=== PATIENT | male | born 1945 | race Caucasian/White ===

== ENCOUNTER 2018-08-16 09:59 | Inpatient (IN) ==
--- NOTE | 2018-08-16 07:29 | Anesthesia Evaluation PreOp ---
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 HX Other Medical History: Hepatic (cirrhosis, recovering alcoholic), Renal (CKD 3) Anesthesia History: No Prior Anesthetic Complications, Past Anesthesia (BPG 1968 , phlebectomy) Alcohol Use: rarely Drug use: none Medications and Allergies Aspirin 81 mg PO DAILY 04/02/16 [History] Ciprofloxacin HCl [Cipro] 500 mg PO BID #14 tab 04/02/16 [Rx] Ferrous Sulfate [Iron Supplement] 325 mg PO DAILY 04/02/16 [History] Folic Acid 1 mg PO DAILY 04/02/16 [History] Furosemide [Lasix] 40 mg PO BID 04/02/16 [History] Lisinopril [Zestril] 5 mg PO DAILY 04/02/16 [History] Metoprolol [Lopressor] 25 mg PO DAILY 04/02/16 [History] Spironolactone [Aldactone] 25 mg PO BID 04/02/16 [History] predniSONE [PredniSONE] 40 mg PO DAILY #10 tablet 06/07/16 [Rx] Pramoxine HCl [Dermarest Eczema] 56.7 gm TP QID PRN #120 lotion 08/11/16 [Rx] Famotidine [Pepcid] 40 mg PO DAILY #30 tablet 10/26/16 [Rx] Ondansetron HCl [Zofran] 4 mg PO Q6H #20 tablet 10/26/16 [Rx] Furosemide [Lasix] 40 mg PO BID #10 tablet 12/23/16 [Rx] OxyCODONE Immed Rel [Roxicodone 5 MG] 5 mg PO Q6HR PRN #10 tablet 08/29/17 [Rx] 3 Allergy/AdvReac Type Severity Reaction Status Date / Time No Known Allergies Allergy Verified 12/23/16 10:15 - Meds/Allergy Pre-op Review Medications Reviewed: Yes Allergies Reviewed: Yes Anesthesia Results - Imaging EKG: report reviewed (ATRIAL FIBRILLATION WITH SLOW VENTRICULAR RESPONSE DIFFUSE ST-T CHANGES ABNORMAL ECG (2017)) Additional studies: stress test: Impression: Perfusion imaging was negative for ischemia or infarct. Pharmacologic stress ECG is non diagnostic for ischemia due to baseline non-specific ST and T abnormalities. Gated EF = 64%. carotid study: The right internal carotid artery has an 80-99% stenosis. The left internal carotid artery has an 80-99% stenosis. echo 2016: Impressions: LVEF 60%. Normal left ventricular size and systolic function. Definity was given. Indeterminate diastolic function. Moderate bi-atrial enlargement. Dilated RV with normal function. Mild mitral regurgitation. Estimated RVSP was 35 mmHg. No pulmonary hypertension. The IVC is not dilated. 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 History: TIA Other Medical History: Hepatic, Renal Anesthesia History: No Prior Anesthetic Complications, Past Anesthesia Alcohol Use: rarely Drug use: none - Meds/Allergy Pre-op Review Medications Reviewed: Yes Allergies Reviewed: Yes Beta Blockers on Current Med List: Yes (this am preop) Anesthesia Results - Labs Laboratory Tests 08/14/18 08/14/18 08/14/18 15:51 15:51 15:51 Hgb 9.3 L Hct 27.3 L PT 11.7 INR 1.0 APTT 37.3 H Sodium 138 Potassium 3.9 Chloride 103 Carbon Dioxide 29 BUN 30 H Creatinine 1.43 H Anesthesia Exam Weight: 90 kg NPO (# of Hours): over 8 hours - HEENT Pupil (Motor): Pupils equal Mallampati: I Teeth: Edentulous Oral Opening: Greater than 3 - Cardiac Rhythm: Regular Murmur: None - Pulmonary Breath Sounds: bilateral Rhonchi Respiratory Effort: Symmetrical Anesthesia Assess/Plan ASA Score: 3 Modified [place] Scale for Level of Consciousness: Cooperative, oriented, and tranquil Anesthetic Plan: General Monitoring Plan: Standard Monitors, A-Line Recovery Plan: PACU (Discussed GA, risks. Agreed to proceed.)
[~2018-08-16 09:59] MED LIST: Vancomycin 1,000 MG, Sodium Chloride IRRigation 1,000 ML IR ONE
[2018-08-16] MEDS ORDERED: CeFAZolin Syr 2,000MG/20 ML 2,000 MG/20 ML SYRINGE IVPB ONE (10:26)
[2018-08-16] MEDS ORDERED: Albuterol 2.5 MG/3 ML NEBULIZER IH ONE (10:26)
[2018-08-16] MEDS ORDERED: Lidocaine -MPF 1% 5 ML AMPUL ONE (10:30)
[2018-08-16] MEDS ORDERED: Protamine Sulfate 50 MG/5 ML VIAL IVP ONE (10:30)
[2018-08-16] MEDS ORDERED: Heparin 1,000 UNITS/500 mL 1,000 ML ONE (10:30)
[2018-08-16] MEDS ORDERED: 0.9 % Sodium Chloride 1,000 ML IVC SCH ×2 (10:30→16:13)
[2018-08-16] MEDS ORDERED: Bupivacaine-MPF 0.25% 10 ML VIAL ONE ×2 (10:30→14:18)
[2018-08-16] MEDS ORDERED: Vancomycin 1,000 MG VIAL ONE (10:30)
[2018-08-16] MEDS ORDERED: Lidocaine -MPF 1% 2 ML VIAL ID ONE (10:32)
[2018-08-16] MEDS ORDERED: Acetaminophen IV 1,000 MG/100 ML INFUS..BTL IVPB ONE (10:37)
[2018-08-16] MEDS ORDERED: Albuterol 2.5 MG/3 ML NEBULIZER ONE (10:37)
[2018-08-16] MEDS ORDERED: Heparin 1,000 UNITS/500 mL 500 ML ONE (10:38)
[2018-08-16] MEDS ORDERED: *HR* FentaNYL (PF) 100 MCG/2 ML VIAL ONE (10:39)
[2018-08-16] MEDS ORDERED: Lidocaine -MPF 2% 2 ML VIAL ONE ×2 (10:40→11:13)
[2018-08-16] MEDS ORDERED: *HR* Propofol 200 MG/20 ML VIAL IVP ONE (10:40)
[2018-08-16] MEDS ORDERED: *HR* Succinylcholine 200 MG/10 ML VIAL IVP ONE (10:40)
[2018-08-16] MEDS ORDERED: *HR* Phenylephrine 10 MG/ML VIAL ONE (10:41)
--- NOTE | 2018-08-16 10:41 | History & Physical Report ---
Date of Encounter: 08/16/18 Time of Encounter: 10:35 24 Hour HP Update - Instructions Instructions: If the History and Physical is less than 30 days old and was completed prior to A.M. admission and or procedure and has NOT been updated on calendar day of procedure please complete this update prior to performing procedure. - Update Patient reports changes in Medical Condition: No Changes in examination, assessment, or condition: No Changes in Medication: No Preop tests/diagnostics Reviewed: Yes Surgery Remains Indicated: Yes Consent for Planned Operative Procedure(s) Verified: Yes - Pre-Operative Checklist Preoperative Checklist Indicated: Yes Prophylactic Antibiotic Ordered: Yes (vancomycin due to risk of MRSA) Home Medications Include Beta Quinn: Yes Beta Quinn Taken Today (Day of Surgery): Yes Beta Quinn Taken Yesterday (Day Prior to Surgery): Yes Is VTE Prophylaxis Indicated?: Yes
[2018-08-16] MEDS ORDERED: 0.9 % Sodium Chloride 500 ML IVC SCH (10:45)
[2018-08-16] MEDS ORDERED: *HR* Remifentanil 2 MG VIAL IVP ONE (10:46)
[2018-08-16] MEDS ORDERED: *HR* Labetalol 100 MG/20 ML MDV ONE (10:48)
[2018-08-16] MEDS ORDERED: NiCARdipine 2.5 MG/10 ML Syringe IVPB ONE (10:48)
[2018-08-16] MEDS ORDERED: EPHEDrine 50 MG/ML VIAL ONE (10:49)
[2018-08-16] MEDS ORDERED: Lidocaine -MPF 4% 5 ML AMPUL ONE (10:51)
[2018-08-16] MEDS ORDERED: *HR* Heparin 5,000 UNIT/ML VIAL ONE ×2 (11:13→13:31)
[2018-08-16] MEDS ORDERED: Ondansetron 4 MG/2 ML VIAL ONE (13:02)
[2018-08-16] MEDS ORDERED: Dexamethasone 4 MG/ML VIAL ONE (13:02)
[2018-08-16] MEDS ORDERED: *HR* OxyCODONE Immed Rel 5 MG TABLET PO PRN ×2 (13:07→16:13)
[2018-08-16] MEDS ORDERED: *HR* Labetalol 20 MG/4 ML SYRINGE IVP PRN ×2 (13:07→16:13)
[2018-08-16] MEDS ORDERED: Ondansetron 4 MG/2 ML VIAL IVP ONE (13:07)
[2018-08-16] MEDS: *HR* HYDROmorphone (PF) 1 MG/ML SYRINGE IVP PRN ×2 (14:56→15:03)
--- NOTE | 2018-08-16 15:32 | Operative Note ---
Date of procedure: 08/16/18 Pre-op diagnosis: 80-99% right internal carotid artery stenosis Post-op diagnosis: same Procedure: Right carotid endarterectomy with Hemashield patch angioplasty Complications: None Anesthesia: GETA Surgeon: Bran Tyler Was there an general office assistant present: No Estimated blood loss (cc): 50 Specimen: Right carotid plaque Condition: stable Disposition: same day Procedure in Detail: Indications: The patient is a 73-year-old male who was found have an 80-99% left internal carotid artery stenosis. A carotid endarterectomy was recommended to reduce his risk of stroke. Procedure: The patient was identified in the preoperative area. The risks, benefits, and alternatives of the procedure were discussed and all questions were answered. The patient was then taken to the operating room and placed in supine position on the operating table. After the induction of general endotracheal anesthesia, the patient was cleaned and draped in normal sterile fashion. A longitudinal incision was made anterior to the right sternocleidomastoid muscle. Hemostasis was obtained via electrocautery. Through a process of blunt , sharp, and electrocautery dissection, the platysma was incised with electrocautery. The jugular vein was identified. The facial vein was dissected , clamped, divided and ligated with a 2-0 silk suture ligature. The jugular vein was retracted to expose the carotid bifurcation. The patient received 2000 units of heparin intravenously at this time. Proximal dissection of the common and external carotid arteries were performed circumferentially. Dissection of the internal carotid was performed circumferentially. Vessels loops were passed around the internal and external carotid and an umbilical tape was passed from the common carotid artery. The patient received additional 3000 units of heparin intravenously. After waiting adequate time for the heparin to circulate, the vessels were occluded and a longitudinal arteriotomy was made into the common carotid artery and extended into the internal carotid beyond the plaque. The plaque was long, extended distally and was heavily calcified. Vigorous pulsatile retrograde flow was noted from the internal carotid artery upon release of the vessel loop. Rapid pulsatile retrograde flow was consistent with significant retrograde perfusion. Given this finding patient was not required.. A dental [place] was used to perform a standard endarterectomy. Proximal and distal endpoints were inspected an no elevated flaps were noted. Additional heparin was given throughout the procedure to maintain adequate anticoagulation. A Hemashield patch was cut to fit the defect and sutured in place with running 6 -0 Prolene. Prior to completing the closure, each vessel was flushed and then reoccluded. Heparinized saline was infused into the lumen. The patch was completed. Flow was restored in the external carotid artery, followed the common carotid artery, lastly the internal carotid artery was opened. A low resistance arterialized signal was present within the internal carotid artery beyond the patch. Thrombin and Gelfoam were used to aid in hemostasis. Meticulous hemostasis was obtained throughout the wound with electrocautery. Platelet rich and platelet poor plasma were infused into the wounds. The sternocleidomastoid was reapproximated with interrupted 3-0 Vicryl. Platelet rich and platelet poor plasma were infused into the wound. A TLS drain was brought through a separate stab incision and sutured in place with 0 silk suture. The platysma was reapproximated with running 3-0 Vicryl. Local anesthetic was infused in the skin. A 3-0 Monocryl was used to reapproximate the skin. A sterile dressing was applied. The patient was extubated, taken to the recovery room in stable condition.
--- NOTE | 2018-08-16 15:47 | Anesthesia Evaluation Post Op ---
Date of Encounter: 08/16/18 Time of Encounter: 15:46 - Vital Signs Vital Signs: Selected Entries 08/16/18 15:35 Temperature 97.7 F Pulse Rate 46 Respiratory Rate 18 Blood Pressure 96/55 O2 Sat by Pulse Oximetry 99 - Lungs Lungs: Clear Ascult./Percussion - Airway Airway: Non-obstructed - Cardiovascular Regular Rate - Pain Pain Scale: 2 Pain Scale used: Numeric (1 - 10) - Nausea Vomiting Nausea Vomiting: Not Present - Hydration Hydration: Tolerates oral liquids, Has not voided - Discharge PostOp Status: Transfer Patient to floor
[2018-08-16] MEDS ORDERED: *HR* HYDROcodone/Acet 5/325 mg TABLET PO PRN (16:13)
[2018-08-16] MEDS ORDERED: Acetaminophen 325 MG TABLET PO PRN (16:13)
[2018-08-16] MEDS ORDERED: Naloxone 0.4 MG/ML INJ IVP PRN (16:13)
[2018-08-16] MEDS ORDERED: OXYCODONE Oral CONC 10 MG/0.5 ML ORAL.SYG SL PRN ×2 (16:13)
[2018-08-16] MEDS ORDERED: Ondansetron 4 MG/2 ML VIAL IVP PRN (16:13)
[2018-08-16] MEDS ORDERED: *HR* Atropine Sulfate 1 MG/10 ML SYRINGE ONE (16:16)
[2018-08-16] MEDS ORDERED: D5% in Water 1,000 ML IVC PRN (16:17)
[2018-08-16] MEDS ORDERED: *HR* Dextrose 50 % in Water (Syg) 50 ML SYRINGE IVP PRN (16:17)
[2018-08-16] MEDS ORDERED: Dextrose Gel 15 GM/37.5 ML TUBE PO PRN ×2 (16:17)
[2018-08-16] MEDS: *HR* Metoprolol 5 MG/5 ML VIAL IVP SCH ×2 (20:04→20:06)
[2018-08-16] MEDS: Insulin LISPRO 300 UNITS/3 ML VIAL SQ SCH (20:05)
[2018-08-16] MEDS: Furosemide 20 MG TABLET PO SCH (20:25)
[2018-08-16] MEDS: Spironolactone 25 MG TABLET PO SCH (20:25)
[2018-08-16] MEDS ORDERED: Insulin LISPRO 300 UNITS/3 ML VIAL SQ SCH (21:00)
[2018-08-17] MEDS: *HR* Metoprolol 5 MG/5 ML VIAL IVP SCH ×2 (00:40→05:57)
[2018-08-17] MEDS ORDERED: *HR* Heparin 5,000 UNIT/ML VIAL SQ SCH ×2 (06:00)
--- NOTE | 2018-08-17 06:51 | Discharge Summary ---
Orders not resulted at time of discharge: Pending orders 08/16/18 14:52 Surgical Pathology [PTH] Routine Date of Encounter: 08/18/18 Time of Encounter: 08:05 - Discharge Diagnosis (1) Carotid stenosis, bilateral Priority: Primary Status: Chronic Comments: The patient is postoperative day #1 after right carotid endarterectomy. His incision is healing well. He has no hematoma. He has no neurologic deficits. He will be discharged today. (2) Mixed hyperlipidemia Priority: Secondary Status: Chronic Comments: He was counseled regarding atherosclerotic risk factor reduction. (3) Coronary artery disease Priority: Secondary Status: Chronic Qualifiers: Coronary Disease-Associated Artery/Lesion type: [place] artery [place] vs. 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: without residential use Diabetes mellitus complication status: with circulatory complication Diabetes mellitus complication detail: with other circulatory complications Qualified Code(s): E11.59 - Type 2 diabetes mellitus with other circulatory complications (6) Chronic kidney disease, stage III (moderate) Priority: Secondary Status: Chronic (7) Tobacco abuse Priority: Secondary Status: Chronic (8) Cirrhosis Priority: Secondary Status: Acute Qualifiers: Hepatic cirrhosis type: alcoholic cirrhosis Ascites presence: without ascites Qualified Code(s): K70.30 - Alcoholic cirrhosis of liver without ascites - Hospital Course Hospital course: Mr. Bullard is a 73 year old male with multiple medical comorbidities who was found to have an 80-99% right internal carotid artery stenosis. He was admitted on 08/16/2018. He was then taken to the operating room where he underwent a right carotid artery. He tolerated the procedure well. On postoperative day #1 he was feeling well, tolerating a diet and his pain was controlled. He was discharged home in stable condition on postoperative day #1 without complications. Time spent discussing smoking cessation with patient: 3 to 10 minutes - Time Spent with Patient Total time spent providing and/or coordinating discharge services: - Discharge Medications Home Medications: Aspirin 81 mg PO DAILY 04/02/16 [History] Metoprolol [Lopressor] 25 mg PO DAILY 04/02/16 [History] Spironolactone [Aldactone] 25 mg PO BID 04/02/16 [History] Cholecalciferol (D-3) [Vitamin D] 5,000 unit PO DAILY 08/16/18 [History] Cyanocobalamin (Vitamin B-12) [Vitamin B12] 500 mcg PO DAILY 08/16/18 [History] Ferrous Sulfate [Iron] 325 mg PO DAILY 08/16/18 [History] Folic Acid 1 mg PO DAILY 08/16/18 [History] Furosemide [Lasix] 40 mg PO TID 08/16/18 [History] Linagliptin [Tradjenta] 5 mg PO DAILY 08/16/18 [History] Oxycodone HCl [Roxybond] 5 mg PO Q12H 08/16/18 [History] Allergies/Adverse Reactions: 3 Allergy/AdvReac Type Severity Reaction Status Date / Time No Known Allergies Allergy Verified 08/16/18 10:42 Date of admission: 08/16/18 16:08 Primary care physician: Philipp Stubbs MD Procedure(s) Performed: Right carotid endarterectomy Discharging clinician: Bran Tyler Anticipated date of discharge: 08/17/18 Exam Vital Signs, Last 4 Hours Temp Pulse Resp BP Pulse Ox 08/17/18 03:23 97.8 F 62 18 122/81 98 08/17/18 03:20 57 General: Present: Conversant HEENT: Present: Pupils equal Neck: Present: Other (Incision clean, dry and intact without erythema or drainage, no hematoma, no pulsatile mass.) Cardiac: Present: Reg Rate and Rhythm Lungs: Present: Normal Breath Sounds Neuro: Present: Alert and responsive, No focal deficits noted Abdomen: Present: Soft Vascular: Present: Normal capillary refill. Absent: Cyanosis, Edema Skin: Present: No rashes noted on visualized skin - Patient Status Disposition: Home, Self-Care Condition: Good Functional capacity at discharge: independent ambulation Overall status at discharge: patient is back to baseline - Discharge Instructions Instructions: Carotid Endarterectomy (DC), Peripheral Vascular Disorders (DC) Follow Up With: Bran Tyler MD [Partnered Physician] - 09/12/18 1:40 pm Philipp Stubbs MD [Primary Care Provider] - 08/25/18 10:15 am Additional Instructions: May remove bandage and shower on 08/21/2018. Wash wound gently and pat to dry. No driving for [address] Tyler at [phone] with questions or concerns. - Diet and Activity Activity: resume usual activities as tolerated Diet: diabetic diet
[2018-08-17 07:10] VITALS: BP 129/99
[2018-08-17] MEDS: Spironolactone 25 MG TABLET PO SCH (08:06)
[2018-08-17] MEDS: Furosemide 20 MG TABLET PO SCH (08:06)
[2018-08-17] MEDS: Insulin LISPRO 300 UNITS/3 ML VIAL SQ SCH (08:09)
[2018-08-17] MEDS ORDERED: Folic Acid 1 MG TABLET PO SCH (09:00)
[2018-08-17] MEDS ORDERED: Cholecalciferol (D-3) 1,000 UNIT TABLET PO SCH (09:00)
[2018-08-17] MEDS ORDERED: Cyanocobalamin (B-12) 1,000 MCG TABLET PO SCH (09:00)
[2018-08-17] MEDS ORDERED: Aspirin 81 MG TAB.CHEW PO SCH (09:00)
== END 2018-08-17 11:28 | disposition home or self-care (01) | DRG 38 ==
LOC: SAMDAY 09:59 → 2NNU 16:08
PROVIDERS: ADMIT Surgery; ATTEND Surgery

== ENCOUNTER 2019-03-14 10:58 | Inpatient (IN) ==
--- NOTE | 2019-03-14 09:43 | Anesthesia Evaluation PreOp ---
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: Other (carotid stenosis s/p RCEA 07/2018) Other Medical History: Hepatic (etoh cirrhosis), Renal (CKD III), Diabetes Type II, Other (lymphedema) Anesthesia History: No Prior Anesthetic Complications, Past Anesthesia (EA 07/2018) Alcohol Use: occasionally Drug use: none Medications and Allergies Aspirin 81 mg PO DAILY 04/02/16 [History] Metoprolol [Lopressor] 25 mg PO DAILY 04/02/16 [History] Spironolactone [Aldactone] 25 mg PO BID 04/02/16 [History] Ferrous Sulfate [Iron] 325 mg PO DAILY 08/16/18 [History] Furosemide [Lasix] 20 mg PO TID 08/16/18 [History] Linagliptin [Tradjenta] 5 mg PO DAILY 08/16/18 [History] Oxycodone HCl [Roxybond] 5 mg PO Q12H 08/16/18 [History] Cyanocobalamin (Vitamin B-12) [Vitamin B-12] 500 mcg PO DAILY 03/14/19 [History] Omeprazole [PriLOSEC] 20 mg PO BID 03/14/19 [History] Allergy/AdvReac Type Severity Reaction Status Date / Time No Known Allergies Allergy Verified 03/14/19 11:15 - Meds/Allergy Pre-op Review Medications Reviewed: Yes Allergies Reviewed: Yes Beta Blockers on Current Med List: Yes If Beta Blockers taken, Date/Time (Last Dose taken): 11am today Anesthesia Results - Labs Laboratory Tests 03/13/19 03/13/19 03/13/19 11:07 11:07 11:07 WBC 5.7 Hgb 10.4 L Hct 31.7 L Plt Count 119 L PT 12.2 H INR 1.1 APTT 36.5 H Sodium 140 Potassium 4.5 Chloride 103 Carbon Dioxide 31 H BUN 24 H Creatinine 1.41 H Glucose 139 H - Imaging EKG: report reviewed (Atrial fibrillation Repol abnrm suggests ischemia, diffuse leads Electronically Signed On 03-05-2019 20:30:18 EDT by Daniele Renee) Additional studies: 02/16/16 Impressions: LVEF 60%. Normal left ventricular size and systolic function. Definity was given. Indeterminate diastolic function. Moderate bi-atrial enlargement. Dilated RV with normal function. Mild mitral regurgitation. Estimated RVSP was 35 mmHg. No pulmonary hypertension. The IVC is not dilated. 08/08/18: Stress negative for ischemia or infarct, EF 64% Anesthesia Exam O2 Sat Height 1.68 m Weight 85.729 kg Vital Signs/O2 Sat, Most Current Temp Pulse Resp BP Pulse Ox 97.8 F 71 18 126/62 94 03/14/19 11:30 03/14/19 11:30 03/14/19 11:30 03/14/19 11:30 03/14/19 11:30 Weight: 85kg NPO (# of Hours): >8 - HEENT Pupil (Motor): Pupils equal, EOMI Mallampati: II Teeth: Edentulous Oral Opening: Greater than 3 - PEDIATRIC RADIOLOGIST LOC: Oriented PEDIATRIC RADIOLOGIST Motor: Normal RUE, Normal LUE, Normal RLE, Normal LLE, Normal Face PEDIATRIC RADIOLOGIST Sensory: Normal: RUE, LUE, RLE, LLE, Face - Cardiac Rhythm: Irregular - Pulmonary Breath Sounds: bilateral Clear Respiratory Effort: Symmetrical Anesthesia Assess/Plan ASA Score: 4 Level of consciousness: Cooperative Anesthetic Plan: General Monitoring Plan: Standard Monitors, A-Line Recovery Plan: PACU
[2019-03-14] MEDS ORDERED: *HR* Propofol 200 MG/20 ML VIAL IVP ONE ×2 (11:09→15:12)
[2019-03-14] MEDS ORDERED: Lidocaine -MPF 4% 5 ML AMPUL ONE (11:09)
[2019-03-14] MEDS ORDERED: *HR* Rocuronium Bromide 50 MG/5 ML VIAL ONE (11:09)
[2019-03-14] MEDS ORDERED: Lidocaine -MPF 2% 2 ML VIAL ONE ×2 (11:09→11:59)
[2019-03-14] MEDS ORDERED: *HR* FentaNYL (PF) 100 MCG/2 ML VIAL ONE ×2 (11:09→15:21)
[2019-03-14] MEDS ORDERED: *HR* Remifentanil 2 MG VIAL IVP ONE (11:13)
[2019-03-14] MEDS ORDERED: Albuterol 2.5 MG/3 ML NEBULIZER IH ONE (11:29)
[2019-03-14] MEDS ORDERED: Ringers Solution, Lactated 1,000 ML IVC SCH ×3 (11:30→17:15)
[2019-03-14] MEDS ORDERED: Heparin 1,000 UNITS/500 mL 500 ML ONE (11:39)
[2019-03-14] MEDS ORDERED: Bupivacaine-MPF 0.25% 10 ML VIAL ONE (11:43)
[2019-03-14] MEDS ORDERED: CeFAZolin Syr 2,000MG/20 ML 2,000 MG/20 ML SYRINGE IVPB ONE (11:43)
[2019-03-14] MEDS ORDERED: Heparin 1,000 UNITS/500 mL 1,000 ML ONE (11:43)
[2019-03-14] MEDS ORDERED: Protamine Sulfate 50 MG/5 ML VIAL IVP ONE (11:43)
--- NOTE | 2019-03-14 11:43 | History & Physical Report ---
Date of Encounter: 03/14/19 Time of Encounter: 11:30 24 Hour HP Update - Instructions Instructions: If the History and Physical is less than 30 days old and was completed prior to A.M. admission and or procedure and has NOT been updated on calendar day of procedure please complete this update prior to performing procedure. - Update Patient reports changes in Medical Condition: No Changes in examination, assessment, or condition: No Changes in Medication: No Preop tests/diagnostics Reviewed: Yes Surgery Remains Indicated: Yes Consent for Planned Operative Procedure(s) Verified: Yes - Pre-Operative Checklist Preoperative Checklist Indicated: Yes Prophylactic Antibiotic Ordered: Yes (vancomycin due to MRSA risk) Home Medications Include Beta Quinn: Yes Beta Quinn Taken Today (Day of Surgery): Yes Beta Quinn Taken Yesterday (Day Prior to Surgery): Yes Is VTE Prophylaxis Indicated?: Yes
[2019-03-14] MEDS ORDERED: Vancomycin 1,000 MG VIAL ONE (11:44)
[2019-03-14] MEDS ORDERED: NiCARdipine 2.5 MG/10 ML Syringe IVPB ONE (12:21)
[2019-03-14] MEDS ORDERED: *HR* Heparin 5,000 UNIT/ML VIAL ONE ×2 (12:46→13:43)
--- NOTE | 2019-03-14 12:49 | Anesthesia Procedures ---
Date of Encounter: 03/14/19 Time of Encounter: 13:14 Procedures: Anesthesia - Arterial Line Consent obtained: written consent Time out performed: Yes Sedation: Fentanyl (mcg): 50 Supplemental Oxygen via Nasal Cannula (L/min): 2 Local Anesthetic: Lidocaine 1% (0.4ml) Size (Gauge): 20 Length (inches): 1 3/4 Technique Used: sterile prep, guide wire technique Post-Procedure: line taped into place, dry sterile dressing placed Patient tolerated procedure: well, no complications Complications: none Site: Radial R
[2019-03-14] MEDS ORDERED: EPHEDrine 50 MG/ML VIAL ONE (14:43)
[2019-03-14] MEDS ORDERED: Neostigmine Methylsulfate 3 MG/3 ML SYRINGE ONE (15:00)
[2019-03-14] MEDS ORDERED: *HR* OxyCODONE Immed Rel 5 MG TABLET PO PRN ×4 (15:28→17:15)
[2019-03-14] MEDS ORDERED: Ondansetron 4 MG/2 ML VIAL IVP ONE ×2 (15:28→17:15)
[2019-03-14] MEDS ORDERED: Naloxone 0.4 MG/ML INJ IVP PRN ×2 (15:29→17:15)
[2019-03-14] MEDS: *HR* FentaNYL (PF) 100 MCG/2 ML VIAL IVP PRN ×2 (15:40→15:45)
[2019-03-14] MEDS ORDERED: *HR* Labetalol 20 MG/4 ML SYRINGE IVP PRN ×2 (15:41→17:15)
[2019-03-14] MEDS ORDERED: *HR* HYDROcodone/Acet 5/325 mg TABLET PO PRN (15:41)
[2019-03-14] MEDS ORDERED: Vancomycin 1,000 MG in D5% in Water 250 ML IVPB ONE (15:41)
[2019-03-14] MEDS ORDERED: Acetaminophen 325 MG TABLET PO PRN (15:41)
[2019-03-14] MEDS ORDERED: *HR* Promethazine 25 MG/ML VIAL IVP PRN ×2 (15:41→17:15)
[2019-03-14] MEDS ORDERED: OXYCODONE Oral CONC 10 MG/0.5 ML ORAL.SYG SL PRN ×3 (15:41→17:15)
--- NOTE | 2019-03-14 15:41 | Operative Note ---
Date of procedure: 03/14/19 Pre-op diagnosis: 80-99% left internal carotid artery stenosis Post-op diagnosis: same Procedure: Left carotid endarterectomy with Hemashield patch angioplasty. Complications: None Anesthesia: GETA Surgeon: Bran Tyler Was there an certified teacher assistant present: No Estimated blood loss (cc): 50 Specimen: Left carotid plaque Condition: stable Disposition: PACU Procedure in Detail: The patient is a 74-year-old male with a history of coronary artery disease, hyperlipidemia, chronic kidney disease, hypertension, cirrhosis, diabetes and tobacco abuse. The patient also has a history of carotid stenosis and was recently found to have an 80-99% left internal carotid artery stenosis. Left carotid arteries recommended to reduce his risk of cerebrovascular accident. Procedure: The patient was identified in the preoperative area. The risks, benefits, and alternatives of the procedure were discussed with him and all questions were answered. He was then taken to the operating room and placed in supine position on the operating table. After the induction of general endotracheal anesthesia, he was prepped and draped in normal sterile fashion. A longitudinal incision was made anterior to the left sternocleidomastoid mus brant. Hemostasis was obtained via electrocautery. Through a process of blunt, sharp, and electrocautery dissection, the platysma was traversed and the jugular vein was identified. The facial vein was dissected, clamped, divided and then ligated with a 2-0 silk suture ligature. The jugular vein was retracted to expose the carotid bifurcation. The patient received 3000 units of heparin intravenously at this time. Proximal dissection of the common and external carotid arteries were performed circumferentially. Dissection of the internal carotid was performed circumferentially. Vessels loops were passed around the internal and external carotid and an umbilical tape was passed from the common carotid artery. The patient received additional 2000 units of heparin intravenously. Additional heparin was given throughout the case to maintain adequate anticoagulation. After waiting adequate time for the heparin to circulate, the internal and external carotid arteries were occluded by applying tension to the vessel loop. A longitudinal arteriotomy was made into the common carotid artery and extended into the internal carotid beyond the plaque. Vigorous pulsatile retrograde flow was noted from the internal carotid artery upon release of the vessel loop. Due to the rapid pulsatile retrograde flow signifcant retrograde perfusion was determined. A dental [place] was then used to perform a standard endarterectomy. Proximal and distal endpoints were inspected and elevated flaps were not present. A Hemashield patch was cut to fit the defect and sutured in place with running 6-0 Prolene. Prior to completing the closure, each vessel was flushed and then reoccluded. Heparinized saline was infused into the lumen. The patch was angioplasty was completed. Flow was then restored in the external carotid artery, followed the common carotid artery and lastly the internal carotid artery was opened. A low resistance arterialized signal was present within the internal carotid artery beyond the patch. Thrombin and Gelfoam were used to aid in hemostasis. Meticulous hemostasis was obtained throughout the wound with electrocautery. Platelet rich and platelet poor plasma were infused into the wounds. The sternocleidomastoid was reapproximated with interrupted 3-0 Vicryl. Platelet rich and platelet poor plasma were infused into the wound. A TLS drain was brought through a separate stab incision and sutured in place with 0 silk suture. The platysma was reapproximated with running 3-0 Vicryl. Local anesthetic was infused in the skin. A 3-0 Monocryl was used to reapproximate the skin. A sterile dressing was applied. The patient was extubated, taken to the recovery room in stable condition.
[2019-03-14] MEDS ORDERED: 0.9 % Sodium Chloride 1,000 ML IVC SCH ×2 (15:45→17:15)
[2019-03-14] MEDS ORDERED: *HR* OxyCODONE Immed Rel 5 MG TABLET PO ONE (16:33)
--- NOTE | 2019-03-14 17:09 | Event Note ---
Date of Encounter: 03/14/19 Time of Encounter: 17:00 The patient is seen on the floor in the postoperative. He is alert with no focal neurologic deficits. He has no hematoma. The patient has chronic intermittent headaches. He reports is expressing headache at this time. He will be given analgesics for his pain. He may begin a clear liquid diet. His diet will be advanced tomorrow. He will receive neurologic checks as ordered.
[2019-03-14] MEDS ORDERED: Vancomycin 1,000 MG, Sodium Chloride IRRigation 1,000 ML IR ONE (17:15)
[2019-03-14] MEDS ORDERED: *HR* Metoprolol 5 MG/5 ML VIAL IVP SCH ×2 (18:00)
[2019-03-14] MEDS: OXYCODONE Oral CONC 10 MG/0.5 ML ORAL.SYG SL PRN (18:22)
[2019-03-14] MEDS: Furosemide 20 MG TABLET PO SCH (18:29)
[2019-03-14] MEDS: Spironolactone 25 MG TABLET PO SCH (20:56)
[2019-03-15] MEDS ORDERED: Vancomycin 0 MG in D5% in Water 250 ML IVPB ONE (02:00)
[2019-03-15] MEDS ORDERED: *HR* Heparin 5,000 UNIT/ML VIAL SQ SCH ×2 (06:00)
[2019-03-15 07:20] VITALS: BP 125/67
[2019-03-15] MEDS: Spironolactone 25 MG TABLET PO SCH (07:42)
[2019-03-15] MEDS: Furosemide 20 MG TABLET PO SCH (07:43)
[2019-03-15] MEDS: OXYCODONE Oral CONC 10 MG/0.5 ML ORAL.SYG SL PRN (07:49)
--- NOTE | 2019-03-15 08:07 | Discharge Summary ---
Orders not resulted at time of discharge: Pending orders 03/14/19 15:10 Surgical Pathology [PTH] Routine Date of Encounter: 03/15/19 Time of Encounter: 07:50 - Discharge Diagnosis (1) Carotid stenosis, bilateral Status: Chronic (2) Mixed hyperlipidemia Status: Chronic (3) Coronary artery disease Status: Chronic Qualifiers: (4) Essential hypertension Status: Chronic (5) Diabetes Status: Chronic Qualifiers: (6) Chronic kidney disease, stage III (moderate) Status: Chronic (7) Tobacco abuse Status: Chronic (8) Cirrhosis Status: Acute Qualifiers: - Hospital Course Hospital course: Mr. Bullard is a 74 year old male - Time Spent with Patient Total time spent providing and/or coordinating discharge services: - Discharge Medications Prescriptions: Continue Spironolactone [Aldactone] 25 mg PO BID Metoprolol [Lopressor] 25 mg PO DAILY Aspirin 81 mg PO DAILY Oxycodone HCl [Roxybond] 5 mg PO Q12H Ferrous Sulfate [Iron] 325 mg PO DAILY Furosemide [Lasix] 20 mg PO TID Linagliptin [Tradjenta] 5 mg PO DAILY Cyanocobalamin (Vitamin B-12) [Vitamin B-12] 500 mcg PO DAILY Omeprazole [PriLOSEC] 20 mg PO BID Home Medications: Aspirin 81 mg PO DAILY 04/02/16 [History] Metoprolol [Lopressor] 25 mg PO DAILY 04/02/16 [History] Spironolactone [Aldactone] 25 mg PO BID 04/02/16 [History] Ferrous Sulfate [Iron] 325 mg PO DAILY 08/16/18 [History] Furosemide [Lasix] 20 mg PO TID 08/16/18 [History] Linagliptin [Tradjenta] 5 mg PO DAILY 08/16/18 [History] Oxycodone HCl [Roxybond] 5 mg PO Q12H 08/16/18 [History] Cyanocobalamin (Vitamin B-12) [Vitamin B-12] 500 mcg PO DAILY 03/14/19 [History] Omeprazole [PriLOSEC] 20 mg PO BID 03/14/19 [History] Allergies/Adverse Reactions: Allergy/AdvReac Type Severity Reaction Status Date / Time No Known Allergies Allergy Verified 03/14/19 11:15 Date of admission: 03/14/19 17:18 Primary care physician: Philipp Stubbs MD Procedure(s) Performed: Left carotid endarterectomy Discharging clinician: Bran Tyler Anticipated date of discharge: 03/15/19 Exam Vital Signs, Last 4 Hours Temp Pulse Resp BP Pulse Ox 03/15/19 07:16 98.2 F 57 18 125/67 98 03/15/19 04:10 98.1 F 69 19 155/93 93 - Patient Status Disposition: Home, Self-Care Condition: Good Functional capacity at discharge: independent ambulation Overall status at discharge: patient is back to baseline - Discharge Instructions Follow Up With: Philipp Stubbs MD [Primary Care Provider] - Additional Instructions: May remove bandage and shower 03/16/2019. Wash wound gently and pat to dry. Do not soak wound in water for 4 weeks. No driving for [address] Tyler at [phone] with questions or concerns. - Diet and Activity Activity: increase activity as tolerated Diet: advance to your usual diet
[2019-03-15] MEDS ORDERED: Aspirin 81 MG TAB.CHEW PO SCH (09:00)
[2019-03-15] MEDS ORDERED: Cyanocobalamin (B-12) 1,000 MCG TABLET PO SCH (09:00)
== END 2019-03-15 11:37 | disposition home or self-care (01) | DRG 37 ==
LOC: SAMDAY 10:58 → 2NNU 17:18
PROVIDERS: ADMIT Surgery; ATTEND Surgery

== ENCOUNTER 2019-06-12 14:28 | Observation (INO) ==
--- NOTE | 2019-06-12 14:44 | Emergency Department Note ---
Disposition Clinical Impression: Bradycardia, Chronic kidney disease, stage III (moderate) Atrial fibrillation Qualifiers: Atrial fibrillation type: chronic Qualified Code(s): I48.2 - Chronic atrial fibrillation Cirrhosis Qualifiers: Hepatic cirrhosis type: alcoholic cirrhosis Ascites presence: without ascites Qualified Code(s): K70.30 - Alcoholic cirrhosis of liver without ascites Disposition: Admitted As Inpatient Condition: Good Time of Disposition: 16:45 General Adult HPI - General Stated complaint: slow heart rate Time Seen by Provider: 06/12/19 14:32 Source: patient, EMS Mode of arrival: EMS Nursing Notes Reviewed: Yes Vital Signs Reviewed: Yes - History of Present Illness HPI Narrative: Male patient presenting to emergency department complaining of a slow heart rate. He was at his primary care doctor's office today for a general checkup he was noted to be bradycardic. Patient does have a history of cirrhosis as well as hypertension and 2 stents placed several years ago, CK 80, diabetes. He takes aspirin daily as well as metoprolol. He also endorses a history of lymphedema to his lower extremities. Patient has no complaints currently. He states he has not been bradycardic as he is aware of before. He does state that he has cirrhosis from previous alcohol abuse and he only drinks 1-2 beers a month. He denies any feelings of his heart going slow. He denies any weakness or shortness of breath. He denies any chest pain. He states he does take an aspirin a day. He does not believe that he is taken too much of his metoprolol he states he counts them Every Day. - Related Data Home Medications Medication Instructions Recorded Confirmed Aspirin 81 mg PO DAILY 04/02/16 06/12/19 Metoprolol [Lopressor] 25 mg PO DAILY 04/02/16 06/12/19 Spironolactone [Aldactone] 25 mg PO BID 04/02/16 06/12/19 Furosemide [Lasix] 40 mg PO TID 08/16/18 06/12/19 Linagliptin [Tradjenta] 5 mg PO DAILY 08/16/18 06/12/19 Oxycodone HCl [Roxybond] 5 mg PO Q12H PRN 08/16/18 06/12/19 Cyanocobalamin (Vitamin B-12) 500 mcg PO DAILY 03/14/19 06/12/19 [Vitamin B-12] Omeprazole [PriLOSEC] 20 mg PO BID 03/14/19 06/12/19 Allergies Allergy/AdvReac Type Severity Reaction Status Date / Time No Known Allergies Allergy Verified 03/14/19 11:15 All systems ED: reviewed and negative except as stated. Review of Systems: As Per HPI Constitutional: Denies: fever, chills Cardiovascular: Denies: chest pain, palpitations, syncope Respiratory: Denies: cough, dyspnea Gastrointestinal: Denies: abdominal pain, nausea, diarrhea Genitourinary: Denies: urgency, dysuria, frequency, hematuria Past Medical History - Past Medical History Attestation: Yes The following information was validated with the patient. Source: patient Medical history: Reports: arthritis, atrial fibrillation, cancer, cirrhosis, CHF, coronary artery disease, diabetes, hyperlipidemia, hypertension, liver disease, myocardial infarction, renal disease, other Surgical history: Reports: non-contributory Psychiatric history: Reports: no psych history - Social History Smoking Status: Current every day smoker Smokeless Tobacco Status: No Alcohol use: Reports: occasionally Drug use: Reports: none Physical Exam - General Limitations: no limitations General appearance: alert, in no apparent distress - Head Head exam: atraumatic, normocephalic, normal inspection - Eye Eye exam: Present: normal appearance, PERRL, EOMI - ENT ENT exam: normal exam, normal oropharynx, mucous membranes moist - Neck Neck exam: Present: normal inspection, full ROM, trachea midline - Chest Chest inspection: Present: normal inspection, symmetric chest wall rise - Respiratory Respiratory exam: Present: normal lung sounds bilaterally. Absent: respiratory distress, accessory muscle use - Cardiovascular Cardiovascular exam: Present: normal rhythm, bradycardia, normal heart sounds - Abdominal Exam Abdominal exam: Present: soft, Non-Tender. Absent: tenderness, distention, guarding, rebound, rigidity, organomegaly, Parker's sign, Rovsing's sign, tenderness at McBurney's Point - Extremities Exam Extremities exam: Present: normal inspection, full ROM, normal capillary refill, pedal edema (Bilateral. To mid tibia). Absent: tenderness - Back Exam Back exam: Present: normal inspection, full ROM. Absent: tenderness - Neurological Exam Neurological exam: Present: alert, oriented X3 - Psychiatric Psychiatric exam: Present: normal affect, normal mood - Skin Skin exam: Present: warm, dry, intact, normal color. Absent: rash, cyanosis, diaphoresis Course Course Narrative: Patient appears well resting in bed. He is bradycardic but hypertensive. Lung sounds are clear heart tones are irregularly irregular. Patient states that he has not taken anymore of his beta lexy that he is supposed to. He reports he is never been bradycardic before. Does have a history of cirrhosis secondary to alcohol abuse. He currently has no complaints. We will get a basic lab workup on patient and admitted to the hospital for the bradycardia. - Reevaluation(s) Reevaluation #1: Patient with no significant lab abnormalities. He appears well. Has been normotensive despite his bradycardia. Pacer pads were placed on the patient. We will admit to the hospital and requested they hold the Toprol tonight. I did discuss this with the hospitalist as well as the manager architectural. I did reiterate to the hospitalist that the manager architectural wanted the Toprol held. Time: 16:42 - Consultations Consultation #1: Dr Anthony was consulted. He requested that we place the patient on [address] to [address] and hold the patient's metoprolol. He had no further recommendations other than to make sure the pads are still on the patient. Time: 16:27 Vital Signs Temperature 97.7 F 06/12/19 14:53 Pulse Rate 38 06/12/19 14:53 Respiratory Rate 15 06/12/19 14:53 Blood Pressure 151/61 06/12/19 14:53 O2 Sat by Pulse Oximetry 98 06/12/19 14:53 Temperature 97.7 F 06/12/19 14:53 Pulse Rate 41 06/12/19 15:48 Respiratory Rate 13 06/12/19 15:48 Blood Pressure 120/56 06/12/19 15:48 O2 Sat by Pulse Oximetry 100 06/12/19 15:48 Oxygen Delivery Oxygen Delivery Nasal Cannula Medical Decision Making - Medical Records Medical records reviewed: Yes I reviewed the patient's medical records. - Lab Data Result diagrams: 06/12/19 14:56 06/12/19 14:40 Lab Results 06/12/19 06/12/19 Range/Units 14:40 14:56 WBC 4.8 (4.3-11.1) K/mcL RBC 3.16 L (4.19-5.50) M/mcL Hgb 10.1 L (12.9-16.9) g/dL Hct 30.7 L (37.5-50.1) % MCV 97.2 (83.0-100.0) fL MCH 32.0 (28.0-33.3) pg MCHC 32.9 (31.6-35.5) g/dL RDW 14.6 H (11.5-14.5) % Plt Count 100 L (140-400) K/mcL MPV 10.0 (9.4-12.4) fL Immature Gran % 0.2 (0-4) % Seg Neutrophils % 63.9 % Lymphocytes % 16.3 % Monocytes % 14.8 % Eosinophils % 4.2 % Basophils % 0.6 % Neutrophils # 3.1 (1.6-8.9) K/mcL Lymphocytes # 0.8 (0.6-4.6) K/mcL Monocytes # 0.7 (0.0-1.3) K/mcL Eosinophils # 0.2 (0.0-0.6) K/mcL Basophils # 0.0 (0.0-0.2) K/mcL Immature Plt Fraction 1.6 (1.1-6.1) % Sodium 138 (136-145) mEq/L Potassium 3.6 (3.5-5.1) mEq/L Chloride 104 (98-107) mEq/L Carbon Dioxide 29 (23-29) mEq/L BUN 28 H (8-23) mg/dL Creatinine 1.58 H (0.70-1.30) mg/dL Est GFR ( Amer) 53 L (> 60) Est GFR (Non-Af Amer) 43 L (> 60) BUN/Creatinine Ratio 18 (6-26) Glucose 122 H (70-105) mg/dL Calculated Osmolality 293 (280-300) Calcium 8.9 (8.6-10.3) mg/dL Magnesium 2.2 (1.6-2.6) mg/dL Total Bilirubin 1.0 (0.3-1.0) mg/dL Direct Bilirubin 0.3 H (0.0-0.2) mg/dL Indirect Bilirubin 0.7 (0.0-1.2) mg/dL AST 26 (13-39) Units/L ALT 17 (7-52) Units/L Alkaline Phosphatase 65 (34-104) Units/L Troponin I 0.03 (< 0.04) ng/mL Serum Total Protein 7.0 (6.4-8.9) g/dL Albumin 3.6 (3.5-5.7) g/dL Globulin 3.4 (2.4-3.5) g/dL Albumin/Globulin Ratio 1.1 (1.1-2.2) TSH 2.286 (0.340-5.600) mcIU/mL - Radiology Data Radiology results reviewed: Yes I reviewed the patient's radiology results. Chest X-Ray 06/12/19 14:40 IMPRESSION: Cardiomegaly with mild perihilar vascular congestion without overt failure. D/ / 06/12/2019 16:05:13 Haily Bentley MD / [facility] Interpreting Provider: Haily Bentley MD - EKG Data EKG #1 EKG attestation: Yes I reviewed and interpreted this EKG. EKG results narrative: Atrial fib at a rate of 31. GA interval was not measured. QRS duration is 126. QT is 541. QTC is 389. No signs of acute ischemia. Good R-wave progression. Patient's EKG in March 26 seen was also A. fib at a rate of 76. Critical Care Time Critical Care Time: Yes Total Critical Care Time: 35 Attestation: Acute bradycardia. Monitor pads placed: Constant cardiac monitoring during the entire ER stay for arrhythmia, worsening bradycardia, or hypertension Attestation Statement - Attestation Attestation: Dr. Bravo note: Patient seen in conjunction with emergency medicine physician resident Dr. Shirley Medina.. Please see her charting for complete documentation. Assessment [id number] time with the patient and I agree with patient's treatment and disposition. Blood work and EKG have been reviewed. Patient's monitoring in the ER has shown heart rate in the range between 35 and 55 bpm. No intervals or QRS complex noted. Blood pressure stable throughout the entire ER stay. Patient walked into the family doctor's appointment this morning asy mptomatic without chest pain shortness of breath or presyncope or weakness and was found to be bradycardic and sent to the ER. Patient did take his beta lexy daily. Denies history of other significant bradycardia. Pacer plants were placed. There is no indication for medication at this time either with atropine of glucagon due to the patient's consistent stability of heart rate between 35 and 55 without symptoms presyncope or hypertension. Admitted in improved condition to the hospitalist with cardiology consult.
[2019-06-12] MEDS ORDERED: 0.9 % Sodium Chloride 500 ML IVC STA (15:02)
[2019-06-12 15:15] LABS: Basophils % 0.6 %; Hemoglobin 10.1 g/dL (12.9-16.9)
[2019-06-12 15:17] LABS: Eosinophils # 0.2 K/mcL (0.0-0.6); Eosinophils % 4.2 %; Hematocrit 30.7 % (37.5-50.1); Immature Granulocytes % 0.2 % (0-4); Immature Platelets 1.6 % (1.1-6.1); Lymphocytes # 0.8 K/mcL (0.6-4.6); Lymphocytes % 16.3 %; Mean Corpuscular HGB Conc 32.9 g/dL (31.6-35.5); Mean Corpuscular Volume 97.2 fL (83.0-100.0); Monocytes # 0.7 K/mcL (0.0-1.3); Monocytes % 14.8 %; Neutrophils # 3.1 K/mcL (1.6-8.9); Platelet Count 100 K/mcL (140-400); Red Blood Count 3.16 M/mcL (4.19-5.50); Red Cell Distribution Width 14.6 % (11.5-14.5); Segmented Neutrophils % 63.9 %; White Blood Count 4.8 K/mcL (4.3-11.1)
[2019-06-12 15:43] LABS: Albumin 3.6 g/dL (3.5-5.7); Albumin/Globulin Ratio 1.1 (1.1-2.2); Bilirubin,Direct 0.3 mg/dL (0.0-0.2); Bilirubin,Indirect 0.7 mg/dL (0.0-1.2); Calcium 8.9 mg/dL (8.6-10.3); Globulin 3.4 g/dL (2.4-3.5); Magnesium 2.2 mg/dL (1.6-2.6); Potassium 3.6 mEq/L (3.5-5.1); Troponin I 0.03 ng/mL (< 0.04)
[2019-06-12 15:57] LABS: Thyroid Stimulating Hormone 2.286 mcIU/mL (0.340-5.600)
[2019-06-12] MEDS ORDERED: Mag Hydrox/Al Hydrox/Simeth 30 ML UDC PO PRN (16:48)
[2019-06-12] MEDS ORDERED: traMADol 50 MG TABLET PO PRN (16:48)
[2019-06-12] MEDS ORDERED: Naloxone 0.4 MG/ML INJ IVP PRN (16:48)
[2019-06-12] MEDS ORDERED: Acetaminophen 325 MG TABLET PO PRN (16:48)
[2019-06-12] MEDS ORDERED: Ondansetron 4 MG/2 ML VIAL IVP PRN (16:48)
[2019-06-12] MEDS ORDERED: *HR* Promethazine 25 MG/ML VIAL IVP PRN (16:48)
[2019-06-12] MEDS ORDERED: MOM Conc 10 ML UD.LIQ PO PRN (16:48)
[2019-06-12] MEDS ORDERED: D5% in Water 1,000 ML IVC PRN (16:51)
[2019-06-12] MEDS ORDERED: Dextrose Gel 15 GM/37.5 ML TUBE PO PRN ×2 (16:51)
[2019-06-12] MEDS ORDERED: *HR* Dextrose 50 % in Water (Syg) 50 ML SYRINGE IVP PRN (16:51)
--- NOTE | 2019-06-12 16:59 | Emergency Department Note ---
Disposition Clinical Impression: Bradycardia, Chronic kidney disease, stage III (moderate) Atrial fibrillation Qualifiers: Atrial fibrillation type: chronic Qualified Code(s): I48.2 - Chronic atrial fibrillation Cirrhosis Qualifiers: Hepatic cirrhosis type: alcoholic cirrhosis Ascites presence: without ascites Qualified Code(s): K70.30 - Alcoholic cirrhosis of liver without ascites Disposition: Admitted As Inpatient Condition: Good Referrals: Philipp Stubbs MD [Primary Care Provider] - Time of Disposition: 17:10 General Adult HPI - General Chief complaint: ED Arrhythmia/Palpitations Stated complaint: slow heart rate Time Seen by Provider: 06/12/19 14:32 Source: patient, EMS Mode of arrival: EMS Limitations: no limitations Nursing Notes Reviewed: Yes Vital Signs Reviewed: Yes - History of Present Illness Pain Scale: 0 - Related Data Home Medications Medication Instructions Recorded Confirmed Aspirin 81 mg PO DAILY 04/02/16 06/12/19 Metoprolol [Lopressor] 25 mg PO DAILY 04/02/16 06/12/19 Spironolactone [Aldactone] 25 mg PO BID 04/02/16 06/12/19 Furosemide [Lasix] 40 mg PO TID 08/16/18 06/12/19 Linagliptin [Tradjenta] 5 mg PO DAILY 08/16/18 06/12/19 Oxycodone HCl [Roxybond] 5 mg PO Q12H PRN 08/16/18 06/12/19 Cyanocobalamin (Vitamin B-12) 500 mcg PO DAILY 03/14/19 06/12/19 [Vitamin B-12] Omeprazole [PriLOSEC] 20 mg PO BID 03/14/19 06/12/19 Allergies Allergy/AdvReac Type Severity Reaction Status Date / Time No Known Allergies Allergy Verified 03/14/19 11:15 Constitutional: Denies: fever, chills Cardiovascular: Denies: chest pain, palpitations, syncope Respiratory: Denies: cough, dyspnea Gastrointestinal: Denies: abdominal pain, nausea, diarrhea Genitourinary: Denies: urgency, dysuria, frequency, hematuria Past Medical History - Past Medical History Medical history: Reports: arthritis, atrial fibrillation, cancer, cirrhosis, CHF, coronary artery disease, diabetes, hyperlipidemia, hypertension, liver disease, myocardial infarction, renal disease, other Surgical history: Reports: non-contributory Psychiatric history: Reports: no psych history - Social History Smoking Status: Current every day smoker Smokeless Tobacco Status: No Alcohol use: Reports: occasionally Drug use: Reports: none Physical Exam - General Limitations: no limitations General appearance: alert, in no apparent distress Course Course Narrative: Dr. Bravo note: EKG also reviewed. Myself. Atrial fibrillation noted with bradycardia. No acute injury pattern noted. Normal QRS interval Vital Signs Temperature 97.7 F 06/12/19 14:53 Pulse Rate 38 06/12/19 14:53 Respiratory Rate 15 06/12/19 14:53 Blood Pressure 151/61 06/12/19 14:53 O2 Sat by Pulse Oximetry 98 06/12/19 14:53 Temperature 97.7 F 06/12/19 14:53 Pulse Rate 41 06/12/19 15:48 Respiratory Rate 13 06/12/19 15:48 Blood Pressure 120/56 06/12/19 15:48 O2 Sat by Pulse Oximetry 100 06/12/19 15:48 Oxygen Delivery Oxygen Delivery Nasal Cannula Medical Decision Making - Lab Data Result diagrams: 06/12/19 14:56 06/12/19 14:40 Lab Results 06/12/19 06/12/19 Range/Units 14:40 14:56 WBC 4.8 (4.3-11.1) K/mcL RBC 3.16 L (4.19-5.50) M/mcL Hgb 10.1 L (12.9-16.9) g/dL Hct 30.7 L (37.5-50.1) % MCV 97.2 (83.0-100.0) fL MCH 32.0 (28.0-33.3) pg MCHC 32.9 (31.6-35.5) g/dL RDW 14.6 H (11.5-14.5) % Plt Count 100 L (140-400) K/mcL MPV 10.0 (9.4-12.4) fL Immature Gran % 0.2 (0-4) % Seg Neutrophils % 63.9 % Lymphocytes % 16.3 % Monocytes % 14.8 % Eosinophils % 4.2 % Basophils % 0.6 % Neutrophils # 3.1 (1.6-8.9) K/mcL Lymphocytes # 0.8 (0.6-4.6) K/mcL Monocytes # 0.7 (0.0-1.3) K/mcL Eosinophils # 0.2 (0.0-0.6) K/mcL Basophils # 0.0 (0.0-0.2) K/mcL Immature Plt Fraction 1.6 (1.1-6.1) % Sodium 138 (136-145) mEq/L Potassium 3.6 (3.5-5.1) mEq/L Chloride 104 (98-107) mEq/L Carbon Dioxide 29 (23-29) mEq/L BUN 28 H (8-23) mg/dL Creatinine 1.58 H (0.70-1.30) mg/dL Est GFR ( Amer) 53 L (> 60) Est GFR (Non-Af Amer) 43 L (> 60) BUN/Creatinine Ratio 18 (6-26) Glucose 122 H (70-105) mg/dL Calculated Osmolality 293 (280-300) Calcium 8.9 (8.6-10.3) mg/dL Magnesium 2.2 (1.6-2.6) mg/dL Total Bilirubin 1.0 (0.3-1.0) mg/dL Direct Bilirubin 0.3 H (0.0-0.2) mg/dL Indirect Bilirubin 0.7 (0.0-1.2) mg/dL AST 26 (13-39) Units/L ALT 17 (7-52) Units/L Alkaline Phosphatase 65 (34-104) Units/L Troponin I 0.03 (< 0.04) ng/mL Serum Total Protein 7.0 (6.4-8.9) g/dL Albumin 3.6 (3.5-5.7) g/dL Globulin 3.4 (2.4-3.5) g/dL Albumin/Globulin Ratio 1.1 (1.1-2.2) TSH 2.286 (0.340-5.600) mcIU/mL Attestation Statement - Attestation Attestation: Dr. Bravo note: Patient seen in conjunction with emergency medicine physician Resident Dr Shirley Medina. Please see her charting for complete documentation. Assessment [id number] time with the patient and I agree with patient's treatment and disposition. No symptoms of bradycardia in the ER. Heart rate is noted to be between 35 and 55 without hypotension or symptoms. Blood work and renal function noted. Admitted to the hospitalist with audiology oncology consultant and we discussed admission with prior. EKG : atrial fibrillation with sinus bradycardia and no widening of the QRS complex.
--- NOTE | 2019-06-12 17:05 | Internal Med History&Physical ---
Date of Encounter: 06/12/19 Time of Encounter: 16:56 Internal Medicine - H&P: HPI Admitted From: Home Plans for Post Hospital Care: Home History of present illness: Mr. Bullard is a 74 year old male with past medical history significant for CAD status post 2 stents placement, chronic atrial fibrillation, chronic kidney disease, diabetes mellitus, liver cirrhosis, hypertension, lymphedema, and CHF resented with asymptomatic bradycardia. Patient was seen by his PCP for routine checkup, where he was found having slow heart rate at 30 to 40s. He was directed to the ED for further evaluation. Patient endorsed cardiac history, takes aspirin and metoprolol at home but not on anticoagulation because of history of GI bleeding. He denies history of bradycardia, his prior EKG performed in February documented a heart rate at 76. He denies chest pain, shortness of breath, cough with sputum production, palpitation, lightheadedness, or syncope. In the ED, patient vital signs was notable for significant bradycardia with heart rate between 30 to 40s, however, his blood pressure was normal. Labs was notable for negative troponin, normal TSH, and normal electrolytes including potassium and magnesium. EKG showed atrial fibrillation, heart rate 36, QRS 98, QT 532, QTC 490, no acute ST-T change. Cardiology was consulted, patient is admitted for further evaluation. CODE STATUS discussed with patient, he wishes to be full code. Past Med Surg Social Fam HX - Past Medical History Medical history: arthritis, atrial fibrillation, cancer, cirrhosis, CHF, coronary artery disease, diabetes, hyperlipidemia, hypertension, liver disease, myocardial infarction, renal disease, other Additional medical history: PVD. cirrhosis. skin cancer Psychiatric history: no psych history - Past Surgical History Surgical History: non-contributory Additional surgical history: vascular surgery x2. skin cancer removal - Social History Smoking Status: Current every day smoker Smokeless Tobacco Status: No Alcohol use: occasionally Drug use: none Internal Medicine - H&P: Meds Aspirin 81 mg PO DAILY 04/02/16 [History] Metoprolol [Lopressor] 25 mg PO DAILY 04/02/16 [History] Spironolactone [Aldactone] 25 mg PO BID 04/02/16 [History] Furosemide [Lasix] 40 mg PO TID 08/16/18 [History] Linagliptin [Tradjenta] 5 mg PO DAILY 08/16/18 [History] Oxycodone HCl [Roxybond] 5 mg PO Q12H PRN 08/16/18 [History] Cyanocobalamin (Vitamin B-12) [Vitamin B-12] 500 mcg PO DAILY 03/14/19 [History] Omeprazole [PriLOSEC] 20 mg PO BID 03/14/19 [History] Allergy/AdvReac Type Severity Reaction Status Date / Time No Known Allergies Allergy Verified 03/14/19 11:15 All Systems PM: A 10-system review of systems was performed and is negative for pertinent findings except as documented above in the HPI. Review of systems: REVIEW OF SYSTEMS: CONSTITUTIONAL: No weight loss, fever, chills, weakness or fatigue. HEENT: Eyes: No visual loss, blurred vision, double vision or yellow sclerae. Ears, Nose, Throat: No hearing loss, sneezing, congestion, runny nose or sore throat. SKIN: No rash or itching. CARDIOVASCULAR: No chest pain, chest pressure or chest discomfort. No palpitations or edema. RESPIRATORY: No shortness of breath, cough or sputum. GASTROINTESTINAL: No anorexia, nausea, vomiting or diarrhea. No abdominal pain or blood. GENITOURINARY: No dysuria, urgency, or frequency. NEUROLOGICAL: No headache, dizziness, syncope, paralysis, ataxia, numbness or tingling in the extremities. No change in bowel or bladder control. MUSCULOSKELETAL: No muscle, back pain, joint pain or stiffness. HEMATOLOGIC: No anemia, bleeding or bruising. LYMPHATICS: No enlarged nodes. No history of splenectomy. PSYCHIATRIC: No history of depression or anxiety. ENDOCRINOLOGIC: No reports of sweating, cold or heat intolerance. No polyuria or polydipsia. - Constitutional Vitals: Temp Pulse Resp BP Pulse Ox 97.7 F 41 13 120/56 100 06/12/19 14:53 06/12/19 15:48 06/12/19 15:48 06/12/19 15:48 06/12/19 15:48 General appearance: Present: A&O X 3 Exam: PHYSICAL EXAMINATION: GENERAL APPEARANCE: The patient is alert, oriented and in no acute distress. HEENT: Head is normocephalic. The sinuses are nontender. Pupils are equal and reactive. The nares are patent. Oropharynx clear without lesions. NECK: Supple without lymphadenopathy. HEART: Regular rate and rhythm. LUNGS: No crackles or wheezes are heard. ABDOMEN: Soft, nontender, nondistended with good bowel sounds heard. Inguinal area is normal. EXTREMITIES: Without cyanosis, clubbing or edema. NEUROLOGICAL: Gross nonfocal. SKIN: Warm and dry without any rash. Internal Med - H&P Results - Labs CBC & Chem 7: 06/12/19 14:56 06/12/19 14:40 Labs: Short CBC 06/12/19 Range/Units 14:56 WBC 4.8 (4.3-11.1) K/mcL Hgb 10.1 L (12.9-16.9) g/dL Hct 30.7 L (37.5-50.1) % Plt Count 100 L (140-400) K/mcL Neutrophils # 3.1 (1.6-8.9) K/mcL BMP 06/12/19 14:40 Sodium 138 Potassium 3.6 Chloride 104 Carbon Dioxide 29 BUN 28 H Creatinine 1.58 H Glucose 122 H Calcium 8.9 Cardiac Enzymes 06/12/19 Range/Units 14:40 Troponin I 0.03 (< 0.04) ng/mL Liver Function 06/12/19 Range/Units 14:40 Total Bilirubin 1.0 (0.3-1.0) mg/dL Direct Bilirubin 0.3 H (0.0-0.2) mg/dL AST 26 (13-39) Units/L ALT 17 (7-52) Units/L Alkaline Phosphatase 65 (34-104) Units/L Albumin 3.6 (3.5-5.7) g/dL - Impressions ITS Impressions Chest X-Ray 06/12/19 14:40 IMPRESSION: Cardiomegaly with mild perihilar vascular congestion without overt failure. D/ / 06/12/2019 16:05:13 Haily Bentley MD / [facility] Interpreting Provider: Haily Bentley MD - Assessment and Plan (1) Bradycardia Current Visit: Yes Status: Acute Assessment and plan: 74-year-old male with history of CAD and chronic atrial fibrillation on aspirin and metoprolol at home presented with significant bradycardia with heart rate at 30s. However patient is asymptomatic, his blood pressure was stable. His EKG was normal except bradycardia. Prior EKG in February showed heart rate is 76. Unclear the underlying etiology at this point. Patient has no chest pain, troponin was negative, EKG has no acute ST-T change, acute ACS is less likely, we will continue cycling troponin, telemetry monitoring, EKG as needed. TSH was normal, as were potassium, calcium, and magnesium. Takes metoprolol at home, medication side effect was suspected, metoprolol hold. Cardiology consulted, appreciate help. (2) Atrial fibrillation Current Visit: No Status: Chronic Assessment and plan: Chronic atrial fibrillation, not on anticoagulation because of history of GI bleeding. Qualifiers: Atrial fibrillation type: chronic Qualified Code(s): I48.2 - Chronic atrial fibrillation (3) Mixed hyperlipidemia Current Visit: No Status: Chronic Assessment and plan: Continue home medication once verified. (4) Coronary artery disease Current Visit: No Status: Chronic Assessment and plan: Continue aspirin and other medications once verified. Qualifiers: Coronary Disease-Associated Artery/Lesion type: [place] artery [place] vs. transplanted heart: [place] heart Associated angina: without angina Qualified Code(s): I25.10 - Atherosclerotic heart disease of [place] coronary artery without angina pectoris (5) Essential hypertension Current Visit: No Status: Chronic Assessment and plan: Metoprolol was on hold, continue monitoring BP, if BP is elevated, consider starting other type of medications other than prieto blockers. (6) Diabetes Current Visit: No Status: Chronic Assessment and plan: Hold oral agent, started on insulin sliding scale. 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 (8) Tobacco abuse Current Visit: No Status: Chronic Assessment and plan: [place] cessation discussed with patient. (9) Cirrhosis Current Visit: No Status: Chronic Assessment and plan: Compensated, continue home medication including Aldactone. Qualifiers: Hepatic cirrhosis type: alcoholic cirrhosis Ascites presence: without ascites Qualified Code(s): K70.30 - Alcoholic cirrhosis of liver without ascites (10) DVT prophylaxis Current Visit: Yes Status: Acute Assessment and plan: Heparin subcutaneous. - Time Spent With Patient Total time spent is greater than 50% in coordination of care (as documented) at patient's floor/unit and/or counseling patient: Greater than 35 minutes
[2019-06-12] MEDS: Insulin LISPRO 300 UNITS/3 ML VIAL SQ SCH (21:47)
[2019-06-12] MEDS: Spironolactone 25 MG TABLET PO SCH (21:48)
[2019-06-12] MEDS: *HR* Heparin 5,000 UNIT/ML VIAL SQ SCH (21:49)
[2019-06-13 04:05] LABS: Red Cell Distribution Width 14.6 % (11.5-14.5)
[2019-06-13 04:07] LABS: Hemoglobin 9.3 g/dL (12.9-16.9); Immature Granulocytes % 0.5 % (0-4); Segmented Neutrophils % 65.6 %
[2019-06-13 04:18] LABS: Basophils % 0.5 %; Eosinophils # 0.1 K/mcL (0.0-0.6); Eosinophils % 3.5 %; Hematocrit 28.1 % (37.5-50.1); Immature Platelets 1.8 % (1.1-6.1); Lymphocytes # 0.6 K/mcL (0.6-4.6); Lymphocytes % 17.1 %; Mean Corpuscular HGB Conc 33.1 g/dL (31.6-35.5); Mean Corpuscular Hemoglobin 32.2 pg (28.0-33.3); Mean Corpuscular Volume 97.2 fL (83.0-100.0); Mean Platelet Volume 9.9 fL (9.4-12.4); Monocytes # 0.5 K/mcL (0.0-1.3); Monocytes % 12.8 %; Red Blood Count 2.89 M/mcL (4.19-5.50); White Blood Count 3.7 K/mcL (4.3-11.1)
[2019-06-13 04:20] LABS: Neutrophils # 2.4 K/mcL (1.6-8.9); Platelet Count 89 K/mcL (140-400)
[2019-06-13 04:21] LABS: BUN/Creatinine Ratio 20 (6-26); Blood Urea Nitrogen 27 mg/dL (8-23); Calcium 8.8 mg/dL (8.6-10.3); Carbon Dioxide 28 mEq/L (23-29); Chloride 106 mEq/L (98-107); Glucose 108 mg/dL (70-105); Osmolality,Calculated 298 (280-300); Potassium 3.7 mEq/L (3.5-5.1); Sodium 141 mEq/L (136-145); eGFR For African Americans > 60 (> 60); eGFR For Non-African Americans 52 (> 60)
[2019-06-13] MEDS: *HR* Heparin 5,000 UNIT/ML VIAL SQ SCH ×2 (06:08→16:30)
[2019-06-13] MEDS: Insulin LISPRO 300 UNITS/3 ML VIAL SQ SCH ×3 (07:26→17:23)
--- NOTE | 2019-06-13 09:32 | Internal Med Progress Note ---
Hospitalist Progress Note - Encounter Date of Encounter: 06/13/19 Time of Encounter: 09:31 - Subjective Interval History: Patient was seen and examined at bedside currently denies any chest pain or shortness of breath patient has a elevated troponin and cardiology has been consulted and appreciate recommendations. Review of telemetry overnight shows heart rate around 50. Discussed treatment plan with the patient who verbalizes understanding. - Exam Vitals: Temp Pulse Resp BP Pulse Ox 98.1 F 57 16 109/51 94 06/13/19 07:13 06/13/19 07:13 06/13/19 07:13 06/13/19 07:13 06/13/19 07:13 Exam: PHYSICAL EXAMINATION: GENERAL APPEARANCE: The patient is alert, oriented and in no acute distress. HEENT: Head is normocephalic. The sinuses are nontender. Pupils are equal and reactive. The nares are patent. Oropharynx clear without lesions. NECK: Supple without lymphadenopathy. HEART: Regular rate and rhythm. LUNGS: No crackles or wheezes are heard. ABDOMEN: Soft, nontender, nondistended with good bowel sounds heard. Inguinal area is normal. EXTREMITIES: Without cyanosis, clubbing or edema. NEUROLOGICAL: Gross nonfocal. SKIN: Warm and dry without any rash. - Assessment and Plan (1) Mixed hyperlipidemia Current Visit: No Status: Chronic Assessment and Plan: Continue home medication once verified. (2) Coronary artery disease Current Visit: No Status: Chronic Assessment and Plan: Continue aspirin hold beta lexy due to bradycardia (3) Essential hypertension Current Visit: No Status: Chronic Assessment and Plan: Metoprolol was on hold, continue monitoring BP, if BP is elevated, consider starting other type of medications other than prieto blockers. 06/13 Blood pressure stable at this time we will continue to monitor (4) Diabetes Current Visit: No Status: Chronic Assessment and Plan: Hold oral agent, started on insulin sliding scale. (5) Chronic kidney disease, stage III (moderate) Current Visit: No Status: Chronic Assessment and Plan: Creatinine baseline 1.2-1.9, Current 1.34, continue monitoring. Avoid nephrotoxins (6) Tobacco abuse Current Visit: No Status: Chronic Assessment and Plan: Smoking cessation discussed with patient. (7) Cirrhosis Current Visit: No Status: Chronic Assessment and Plan: Compensated, continue home medication including Aldactone. (8) Atrial fibrillation Current Visit: No Status: Chronic Assessment and Plan: Chronic atrial fibrillation, not on anticoagulation because of history of GI bleeding. Chronic thrombocytopenia Avoid AV prieto blockers Cardiology consulted and recommending event monitor at discharge (9) Bradycardia Current Visit: Yes Status: Acute Assessment and Plan: 74-year-old male with history of CAD and chronic atrial fibrillation on aspirin and metoprolol at home presented with significant bradycardia with heart rate at 30s. However patient is asymptomatic, his blood pressure was stable. His EKG was normal except bradycardia. Prior EKG in February showed heart rate is 76. Unclear the underlying etiology at this point. Patient has no chest pain, troponin was negative, EKG has no acute ST-T change, acute ACS is less likely, we will continue cycling troponin, telemetry monitoring, EKG as needed. TSH was normal, as were potassium, calcium, and magnesium. Takes metoprolol at home, medication side effect was suspected, metoprolol hold. Cardiology consulted, appreciate help. 06/13 Review of telemetry shows a heart rate in the 50s overnight continue to hold beta lexy Cardiology consulted and recommending event monitor at discharge and avoid AV prieto blockers (10) DVT prophylaxis Current Visit: Yes Status: Acute (11) Elevated troponin Current Visit: Yes Status: Acute Assessment and Plan: Patient does have troponins 0.05, 0.08, 0.09 insetting SCK D and bradycardia no chest pain no acute ischemic changes on EKG Cardiology was consulted and appreciate recommendations TTE ordered and pending at this time - Time Spent with Patient Total time spent is greater than 50% in coordination of care (as documented) at patient's floor/unit and/or counseling patient: Internal Medicine: Result - Labs CBC & Chem 7: 06/13/19 03:01 06/13/19 03:01 Labs: Short CBC 06/12/19 06/13/19 Range/Units 14:56 03:01 WBC 4.8 3.7 L (4.3-11.1) K/mcL Hgb 10.1 L 9.3 L (12.9-16.9) g/dL Hct 30.7 L 28.1 L (37.5-50.1) % Plt Count 100 L 89 L (140-400) K/mcL Neutrophils # 3.1 2.4 (1.6-8.9) K/mcL BMP 06/12/19 06/13/19 14:40 03:01 Sodium 138 141 Potassium 3.6 3.7 Chloride 104 106 Carbon Dioxide 29 28 BUN 28 H 27 H Creatinine 1.58 H 1.34 H Glucose 122 H 108 H Calcium 8.9 8.8 Cardiac Enzymes 06/12/19 06/12/19 06/13/19 Range/Units 14:40 21:37 03:01 Troponin I 0.03 0.05 H* 0.08 H* (< 0.04) ng/mL Liver Function 06/12/19 Range/Units 14:40 Total Bilirubin 1.0 (0.3-1.0) mg/dL Direct Bilirubin 0.3 H (0.0-0.2) mg/dL AST 26 (13-39) Units/L ALT 17 (7-52) Units/L Alkaline Phosphatase 65 (34-104) Units/L Albumin 3.6 (3.5-5.7) g/dL - Impressions Impressions Chest X-Ray 06/12/19 14:40 IMPRESSION: Cardiomegaly with mild perihilar vascular congestion without overt failure. D/ /12/2019 16:05:13 Haily Bentley MD / [facility] Interpreting Provider: Haily Bentley MD Consult Discharge Plan - Plan Referrals: Philipp Stubbs MD [Primary Care Provider] - (APPT WR) (2) Coronary artery disease Qualifiers: Coronary Disease-Associated Artery/Lesion type: [place] artery [place] vs. 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
[2019-06-13] MEDS: Aspirin 81 MG TAB.CHEW PO SCH (09:37)
[2019-06-13] MEDS: Cyanocobalamin (B-12) 1,000 MCG TABLET PO SCH (09:37)
[2019-06-13] MEDS: Spironolactone 25 MG TABLET PO SCH ×2 (09:37→20:06)
--- NOTE | 2019-06-13 11:49 | Cardiology Consult Note ---
<TyrellBecky J - Last Filed: 06/13/19 11:42> Date of Encounter: 06/13/19 Time of Encounter: 09:15 Assessment and Plan (1) Atrial fibrillation with slow ventricular response Status: Acute Per cardiology: -Admitted with a.fib with slow ventricular response. Was on BB at home, BB held. -Patient was asymptomatic. -Average HR previous 12 hours noted to be 57. -Not on antiocoagulation due to high risk with anemia, chronic thrombocytopenia. Patient is educated on increased risk of CVA/embolic event. -Avoid AV prieto blockers. -Recommend event monitor at discharge. (2) Elevated troponin Status: Acute Per cardiology: -Troponins negative, 0.05, 0.08, 0.09 in the setting of CKD, bradycardia. -Denies chest pain. -No acute ischemic ECG changes noted. -Stress 07/2018 negative for ischemia or infarct. -On asa. 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 Not on BB due to bradycadia. -TTE 01/2016 with LVEF 60%, no wall motion abnormalities noted. -Current TTE pending. -Suspect demand ischemia, no cardiac rehab consult warranted. -Further recs pending TTE. Discussion w patient/family: The assessment and plan as outlined above was discussed with the patient who expressed understanding and agreement. All questions were answered. Thank you for involving us in the care of your patient. Please call with any questions. Discussed and reviewed with History of Present Illness Consult date: 06/12/19 Requesting physician: Shirley Medina Consult reason: bradycardia Chief complaint: low HR History of present illness: Mr. Bullard is a 74 year old male with a relevant past medical history of CAD s/p previous PCI, lymphedema, chronic a.fib, cirrhosis, chronic thrombocytenia, PVD, carotid stenosis s/p CEA, previous ETOH abuse, CKD, DM, CHF, who presented to [facility] with low HR. Patient states he went to his PCP for a routine visit and HR was noted to be low and he was recommended for ER evaluation. Patient states he was asymptomatic. Denies dizziness, lightheadedness, syncope, or near syncope. Patient states he felt totally fine and still does. Patient denies chest pain. Denies shortness of breath. Denies increased fatigue. Past Med Surg Social Fam HX - Past Medical History Attestation: Yes The following information was validated with the patient. Source: patient, old records reviewed Medical history: arthritis, atrial fibrillation, cancer, cirrhosis, CHF, coronary artery disease, diabetes, hyperlipidemia, hypertension, liver disease, myocardial infarction, renal disease, other Additional medical history: PVD. cirrhosis. skin cancer Psychiatric history: no psych history - Past Surgical History Surgical History: non-contributory Additional surgical history: vascular surgery x2. skin cancer removal - Social History Smoking Status: Current every day smoker Smokeless Tobacco Status: No Alcohol use: occasionally Drug use: none - Family History Brother Hx Family Cancer: Yes Sister Hx Family Cardiac Disorders: Yes Father Hx Family Cardiac Disorders: Yes Medications and Allergies Aspirin 81 mg PO DAILY 04/02/16 [History] Spironolactone [Aldactone] 25 mg PO BID 04/02/16 [History] Furosemide [Lasix] 40 mg PO TID 08/16/18 [History] Linagliptin [Tradjenta] 5 mg PO DAILY 08/16/18 [History] Oxycodone HCl [Roxybond] 5 mg PO Q12H PRN 08/16/18 [History] Cyanocobalamin (Vitamin B-12) [Vitamin B-12] 500 mcg PO DAILY 03/14/19 [History] Omeprazole [PriLOSEC] 20 mg PO BID 03/14/19 [History] Cholecalciferol (D-3) [Vitamin D] 5,000 unit PO DAILY 06/13/19 [History] Ferrous Sulfate 325 mg PO DAILY 06/13/19 [History] Allergy/AdvReac Type Severity Reaction Status Date / Time No Known Allergies Allergy Verified 03/14/19 11:15 All Systems Review: The remainder of the systems were reviewed and are negative - Cardiovascular Cardiovascular: as per HPI, slow heart rate Physical Examination Vital Signs Temperature 97.7 F 06/12/19 14:53 Pulse Rate 38 06/12/19 14:53 Respiratory Rate 15 06/12/19 14:53 Blood Pressure 151/61 06/12/19 14:53 O2 Sat by Pulse Oximetry 98 06/12/19 14:53 Temperature 98.1 F 06/13/19 07:13 Pulse Rate 57 06/13/19 07:13 Respiratory Rate 16 06/13/19 07:13 Blood Pressure 109/51 06/13/19 07:13 O2 Sat by Pulse Oximetry 94 06/13/19 07:13 Oxygen Delivery Oxygen Delivery Nasal Cannula General: Conversant, No Apparent Distress HEENT: Atraumatic, Normocephaly, Mucus Membranes Moist Neck: No JVD, Normal carotid pulses Cardiac: Normal S1 and S2, No Murmur, Other (Irregularly irregular) Lungs: Normal Breath Sounds, No Wheeze, Rales, Rhonchi Neuro: Alert and responsive, No focal deficits noted Abdomen: Soft, Non-Tender Skin: No rashes noted on visualized skin Musculoskeletal: No Chest Wall Tenderness Extremities: No Clubbing, No Cyanosis, Normal Pulses, Other (Bilateral lower extremity lymphadema noted. ) Results 06/13/19 03:01 06/13/19 03:01 Lab Results Impressions Chest X-Ray 06/12/19 14:40 IMPRESSION: Cardiomegaly with mild perihilar vascular congestion without overt failure. D/ / 06/12/2019 16:05:13 Haily Bentley MD / earnold Interpreting Provider: Haily Bentley MD Active Medications Acetaminophen (Tylenol) 650 mg PO Q6HR PRN PRN Reason: Mild Pain/Fever Stop: 12/12/19 16:49 Al Hydrox/Mg Hydrox/Simethicone (Maalox) 15 ml PO Q6HR PRN PRN Reason: Dyspepsia Stop: 12/12/19 16:49 Aspirin (Aspirin) 81 mg PO DAILY PENDING SALE TO [facility] Stop: 12/13/19 09:01 Last Admin: 06/13/19 09:37 Dose: 81 mg Documented by: Cyanocobalamin (Vitamin B12) 500 mcg PO DAILY PENDING SALE TO [facility] Stop: 12/13/19 09:01 Last Admin: 06/13/19 09:37 Dose: 500 mcg Documented by: Dextrose/Water (Dextrose 50% (Syg)) 25 ml IVP AD PRN PRN Reason: Hypoglycemia Stop: 12/12/19 16:52 Furosemide (Lasix) 40 mg PO TIDDIURETIC PENDING SALE TO [facility] Stop: 12/13/19 17:46 Glucagon (Glucagen) 1 mg IM ONCE PRN PRN Reason: Hypoglycemia Stop: 12/12/19 16:52 Glucose (Gluctose) 15 gm PO ONCE PRN PRN Reason: Hypoglycemia Stop: 12/12/19 16:52 Glucose (Gluctose) 30 gm PO ONCE PRN PRN Reason: Hypoglycemia Stop: 12/12/19 16:52 Heparin Sodium (Porcine) (Heparin) 5,000 unit SQ Q12HCO PENDING SALE TO [facility] Stop: 12/12/19 18:01 Last Admin: 06/13/19 06:08 Dose: Not Given Documented by: Dextrose (Dextrose 5%) 1,000 mls @ 100 mls/hr IVC .Q10H PRN PRN Reason: HYPOGLYCEMIA Stop: 12/12/19 16:52 Insulin Human Lispro (Humalog) 0 units SQ HS PENDING SALE TO [facility]; Protocol Stop: 12/12/19 21:01 Last Admin: 06/12/19 21:47 Dose: Not Given Documented by: Insulin Human Lispro (Humalog) 0 units SQ TIDAC PENDING SALE TO [facility]; Protocol Stop: 12/13/19 07:31 Last Admin: 06/13/19 11:37 Dose: Not Given Documented by: Magnesium Hydroxide (Milk Of Magnesia Conc) 10 ml PO DAILY PRN PRN Reason: Constipation Stop: 12/12/19 16:49 Naloxone HCl (Narcan) 0.4 mg IVP Q2MPRN PRN PRN Reason: SEE COMMENTS Stop: 12/12/19 16:49 Omeprazole (Prilosec) 20 mg PO BIDAC PENDING SALE TO [facility]; Protocol Stop: 12/13/19 07:31 Last Admin: 06/13/19 09:37 Dose: 20 mg Documented by: Ondansetron HCl (Zofran) 4 mg IVP Q8HR PRN PRN Reason: Nausea And Vomiting Stop: 12/12/19 16:49 Promethazine HCl (Phenergan) 12.5 mg IVP Q6HR PRN PRN Reason: Nausea And Vomiting Stop: 12/12/19 16:49 Spironolactone (Aldactone) 25 mg PO BID PENDING SALE TO [facility] Stop: 12/12/19 21:01 Last Admin: 06/13/19 09:37 Dose: 25 mg Documented by: Tramadol HCl (Ultram) 50 mg PO Q6HR PRN PRN Reason: Moderate Pain Stop: 12/12/19 16:49 Laboratory Tests 06/12/19 06/12/19 06/13/19 14:40 21:37 03:01 Hgb Creatinine Troponin I 0.03 0.05 H* 0.08 H* 06/13/19 06/13/19 06/13/19 03:01 03:01 10:46 Hgb 9.3 L Creatinine 1.34 H Troponin I 0.09 H* - Imaging and Cardiology Chest Xray: report reviewed Stress Test: report reviewed Echo: pending, report reviewed - EKG Interpretation EKG results cardiology: personally reviewed (ECG with a.fib SVR, HR 44.), other (Telemetry reviewed with average HR previous 12 hours noted to be 57, a.fib. PVCs noted.) Consult Discharge Plan - Plan Instructions: Atrial Fibrillation (DC), Holter Monitoring (DC) Referrals: [facility] [Provider Group] (in 2 weeks for holter monitor follow up. An appointment has been requested. ) Philipp Stubbs MD [Primary Care Provider] - 06/18/19 10:15 am () <Benji Johnson - Last Filed: 06/14/19 21:39> Date of Encounter: 06/14/19 - Attending Attestation I have personally performed a face to face evaluation on this patient. I have reviewed and agree with the documented findings and care plan as documented by the JAZZ MUSICIAN. History and Exam by me shows: Patient with afib and episode of asymptomatic bradycardia. Recommend event monitor to evaluate for significant pause. Echo is pending Benji Stewart MD [facility]. Assessment and Plan Discussion w patient/family: The assessment and plan as outlined above was discussed with the patient and/or family members who expressed understanding and agreement. All questions were answered. Thank you for involving us in the care of your patient. Please call with any questions. History of Present Illness History of present illness: Mr. Bullard is a 74 year old male All Systems Review: The remainder of the systems were reviewed and are negative Results 06/13/19 03:01 06/13/19 03:01
[2019-06-13] MEDS ORDERED: Perflutren Lipid Microsphere 1.3 ML in 0.9 % Sodium Chloride 8.7 ML IVP ONE (15:18)
[2019-06-13] MEDS: Furosemide 40 MG TABLET PO SCH (17:22)
[2019-06-14] MEDS: Insulin LISPRO 300 UNITS/3 ML VIAL SQ SCH ×2 (02:20→09:23)
[2019-06-14 07:03] VITALS: BP 122/57
[2019-06-14] MEDS: Cyanocobalamin (B-12) 1,000 MCG TABLET PO SCH (09:25)
[2019-06-14] MEDS: Aspirin 81 MG TAB.CHEW PO SCH (09:25)
--- NOTE | 2019-06-14 09:25 | Event Note ---
Date of Encounter: 06/14/19 Time of Encounter: 09:23 - Cardiology Event Note [place] admitted with asymptomatic bradycardia. BB has been held. Average HR previous 12 hours noted to be 59, a.fib SVR. Mild, adynamic troponin elevation. Denies chest pain, increased shortness of breath, or increased fatigue. No acute ischemic ECG changes noted. TTE with LVEF preserved, no wall motion abnormalities noted. Cardiology will sign off, will arrange close outpatient follow up.
[2019-06-14] MEDS: Spironolactone 25 MG TABLET PO SCH (09:26)
[2019-06-14] MEDS: Furosemide 40 MG TABLET PO SCH (09:26)
--- NOTE | 2019-06-14 10:16 | Discharge Summary ---
- NOTES TO OUTPATIENT PROVIDER Notes to Outpatient Provider: Easily with asymptomatic bradycardia was seen by cardiology beta lexy was stopped-Holter monitor as outpatient will follow-up with cardiology as outpatient Orders not resulted at time of discharge: Pending orders 06/12/19 14:40 ECG 12 lead ECG [ECG] Stat 06/12/19 21:16 ECG 12 lead ECG [ECG] Stat Date of Encounter: 06/14/19 Time of Encounter: 10:13 - Discharge Diagnosis (1) Mixed hyperlipidemia Priority: Secondary Status: Chronic (2) Coronary artery disease Priority: Secondary Status: Chronic Qualifiers: Coronary Disease-Associated Artery/Lesion type: [place] artery [place] vs. transplanted heart: [place] heart Associated angina: without angina Qualified Code(s): I25.10 - Atherosclerotic heart disease of [place] coronary artery without angina pectoris (3) Essential hypertension Priority: Secondary Status: Chronic (4) Diabetes Priority: Secondary Status: Chronic Qualifiers: Diabetes mellitus type: type 2 Diabetes mellitus supervisor intermediates insulin use: without supervisor intermediates use Diabetes mellitus complication status: with circulatory complication Diabetes mellitus complication detail: with other circulatory complications Qualified Code(s): E11.59 - Type 2 diabetes mellitus with other circulatory complications (5) Chronic kidney disease, stage III (moderate) Priority: Secondary Status: Chronic (6) Tobacco abuse Priority: Secondary Status: Chronic (7) Cirrhosis Priority: Secondary Status: Chronic Qualifiers: Hepatic cirrhosis type: alcoholic cirrhosis Ascites presence: without ascites Qualified Code(s): K70.30 - Alcoholic cirrhosis of liver without ascites (8) Atrial fibrillation Priority: Secondary Status: Chronic Qualifiers: Atrial fibrillation type: chronic Qualified Code(s): I48.2 - Chronic atrial fibrillation (9) Bradycardia Priority: Primary Status: Acute (10) Elevated troponin Priority: Secondary Status: Acute Hospital course: Mr. Bullard is a 74 year old male past history of CAD status post previous PCI a lymphedema chronic A. fib cirrhosis chronic thrombocytopenia PVD carotid stenosis status post CEA previous alcohol use CKG diabetes CHF presented to [facility] with low heart rate. According to patient he was as PCPs office for routine visit was noted to have heart rate in the 30s. He was advised her to the ER for evaluation. Patient has been asymptomatic and denies any dizziness lightheadedness syncopal episodes or near syncope. She does have a cardiac history and does take aspirin and metoprolol he is not on any anticoagulation with a history of GI bleeding. EKG was obtained which did show atrial fibrillation heart rate of 36 QTC C of [address]-T wave abnormalities. Lab work was obtained troponins adynamic. Cardiac echo was completed with EF of 6065% mildly dilated right ventricle with normal function mild biatrial dilatation and mild/moderate tricuspid regurgitation [id number] pulmonic regurgitation and mild pulmonary hypertension Normal TSH cardiology was consulted. Recommending avoiding AV prieto blockers recommending event monitor. Patient HR has been in the 50s He will discharged and will follow up with cardiology and PCP - Time Spent with Patient Total time spent providing and/or coordinating discharge services: - Discharge Medications Prescriptions: Continued Spironolactone [Aldactone] 25 mg PO BID Aspirin 81 mg PO DAILY Oxycodone HCl [Roxybond] 5 mg PO Q12H PRN PRN Reason: Pain Furosemide [Lasix] 40 mg PO TID Linagliptin [Tradjenta] 5 mg PO DAILY Cyanocobalamin (Vitamin B-12) [Vitamin B-12] 500 mcg PO DAILY Omeprazole [PriLOSEC] 20 mg PO BID Cholecalciferol (D-3) [Vitamin D] 5,000 unit PO DAILY Ferrous Sulfate 325 mg PO DAILY Discontinued Metoprolol [Lopressor] 25 mg PO DAILY Home Medications: Aspirin 81 mg PO DAILY 04/02/16 [History] Spironolactone [Aldactone] 25 mg PO BID 04/02/16 [History] Furosemide [Lasix] 40 mg PO TID 08/16/18 [History] Linagliptin [Tradjenta] 5 mg PO DAILY 08/16/18 [History] Oxycodone HCl [Roxybond] 5 mg PO Q12H PRN 08/16/18 [History] Cyanocobalamin (Vitamin B-12) [Vitamin B-12] 500 mcg PO DAILY 03/14/19 [History] Omeprazole [PriLOSEC] 20 mg PO BID 03/14/19 [History] Cholecalciferol (D-3) [Vitamin D] 5,000 unit PO DAILY 06/13/19 [History] Ferrous Sulfate 325 mg PO DAILY 06/13/19 [History] Allergies/Adverse Reactions: Allergy/AdvReac Type Severity Reaction Status Date / Time No Known Allergies Allergy Verified 03/14/19 11:15 Date of admission: 06/12/19 20:05 Primary care physician: Philipp Stubbs MD Consults: 06/12/19 16:21 Consult to Cardiology [CONS] Stat Comment: Consulting Provider: Edilberto Montez Reason for Consult: bradycardia Call Completed: Yes Discharging clinician: Lyly Robles Anticipated date of discharge: 06/14/19 - Constitutional Vitals: Temp Pulse Resp BP Pulse Ox 98.0 F 58 16 122/57 94 06/14/19 07:02 06/14/19 07:02 06/14/19 07:02 06/14/19 07:02 06/14/19 07:02 General appearance: Present: A&O X 3 Exam: Skin: Free of rash and discoloration. Eyes: Sclera is white. There is no discharge from eyes. ENMT: Oral/pharyngeal mucosa is normal in appearance. There is no discharge from nose or ears. Respiratory: Normal breath sounds with no crackles and wheezes bilaterally. CV: Heart is regular with no gallop or murmur. GI: Abdomen is flat and soft with no palpable mass or visceromegaly. : There is no tenderness in patient's flanks bilaterally. Neuro exam: He has good strength in upper and lower extremities. He has normal eye movements. Psychiatric: He has normal affect. His thought process is appropriate to the situation. - Patient Status Disposition: Home, Self-Care Condition: Good Functional capacity at discharge: independent ambulation Overall status at discharge: patient is back to baseline - Discharge Instructions Instructions: Atrial Fibrillation (DC) Follow Up With: [facility] [Provider Group] (in 2 weeks for holter monitor follow up) Philipp Stubbs MD [Primary Care Provider] - 06/18/19 10:15 am () - Diet and Activity Activity: increase activity as tolerated Diet: advance to your usual diet
--- NOTE | 2019-06-15 23:12 | Electrocardiograph Report ---
[facility] Test Date: 2019-06-12 Pat Name: Sravan Bullard Department: [id number] Room: 3B63 Gender: M Clinical Leader: : 1945 Requested By: Shirley Medina Order Number: [id number] Reading MD: Yaniv Charles Measurements Intervals [place] Rate: 44 P: [place]: QRS: 73 QRSD: 118 T: 60 QT: 541 QTc: 463 Interpretive Statements Atrial fibrillation Nonspecific intraventricular conduction delay Borderline repolarization abnormality Electronically Signed On 06-15-2019 23:10:48 EDT by Yaniv Charles
== END 2019-06-14 11:11 | disposition home or self-care (01) ==
LOC: EMEROOARM 14:28 → 3BNU 14:28
PROVIDERS: ADMIT Internal Medicine; ATTEND Internal Medicine

== ENCOUNTER 2020-07-31 13:58 | Inpatient (IN) ==
[2020-07-31 14:40] LABS: Basophils % 0.5 %; Eosinophils % 0.9 %; Immature Granulocytes % 0.5 % (0-4); Lymphocytes # 0.5 K/mcL (0.6-4.6); Lymphocytes % 10.9 %; Mean Corpuscular HGB Conc 33.3 g/dL (31.6-35.5); Mean Corpuscular Hemoglobin 32.1 pg (28.0-33.3); Mean Corpuscular Volume 96.3 fL (83.0-100.0); Mean Platelet Volume 9.4 fL (9.4-12.4); Monocytes # 0.7 K/mcL (0.0-1.3); Monocytes % 15.2 %; Neutrophils # 3.2 K/mcL (1.6-8.9); Platelet Count 117 K/mcL (140-400); Red Blood Count 2.18 M/mcL (4.19-5.50); Red Cell Distribution Width 14.8 % (11.5-14.5); White Blood Count 4.4 K/mcL (4.3-11.1)
[2020-07-31 14:56] LABS: INR 1.2; Prothrombin Time 13.3 Seconds (9.4-12.1)
[2020-07-31 14:59] LABS: Activated Partial Thrombo Time 35.7 Seconds (26.0-36.0)
[2020-07-31 15:01] LABS: BUN/Creatinine Ratio 36 (6-26); Blood Urea Nitrogen 46 mg/dL (8-23); Calcium 8.4 mg/dL (8.6-10.3); Carbon Dioxide 28 mEq/L (23-29); Chloride 102 mEq/L (98-107); Glucose 188 mg/dL (70-105); Osmolality,Calculated 299 (280-300); Potassium 4.3 mEq/L (3.5-5.1); Sodium 136 mEq/L (136-145); eGFR For African Americans > 60 (> 60); eGFR For Non-African Americans 56 (> 60)
[2020-07-31 15:03] LABS: Troponin I 1.51 ng/mL (< 0.04)
[2020-07-31] MEDS ORDERED: Pantoprazole 40 MG VIAL IVP ONE ×2 (15:43→15:53)
[2020-07-31] MEDS ORDERED: Octreotide 50 MCG/ML INJ IVP ONE (15:43)
[2020-07-31] MEDS ORDERED: Isovue-370 500 ML BOTTLE IVP ONE (15:44)
[2020-07-31] MEDS ORDERED: cefTRIAXone 1,000 MG in Water for inj. (sterile) 10 ML IVP ONE (16:27)
[2020-07-31] MEDS: Octreotide 400 MCG in 0.9 % Sodium Chloride 100 ML IVC SCH (16:49)
[2020-07-31] MEDS ORDERED: SODIUM CHLORIDE/NAHCO3/KCL/PEG 4,000 ML SOLN.RECON PO ONE (17:00)
[2020-07-31] MEDS ORDERED: 0.9 % Sodium Chloride 500 ML ONE (17:06)
[2020-07-31] MEDS ORDERED: Morphine Sulfate 2 MG/ML SYRINGE IVP ONE (17:12)
[2020-07-31] MEDS ORDERED: Nitroglycerin 0.4 MG TAB.SUBL SL ONE (17:14)
[2020-07-31] MEDS ORDERED: Naloxone 0.4 MG/ML INJ IVP PRN (17:20)
[2020-07-31] MEDS ORDERED: Perflutren Lipid Microsphere 1.3 ML in 0.9 % Sodium Chloride 8.7 ML IVP PRN (17:23)
[2020-07-31] MEDS: 0.9 % Sodium Chloride 1,000 ML IVC SCH (18:28)
[2020-07-31] MEDS: Nitroglycerin 0.4 MG TAB.SUBL SL SCH ×3 (18:41→22:36)
[2020-07-31] MEDS ORDERED: *HR* Dextrose 50 % in Water (Vial) 50 ML VIAL IVP PRN (21:12)
[2020-07-31] MEDS ORDERED: D5% in Water 1,000 ML IVC PRN (21:12)
[2020-07-31] MEDS ORDERED: Dextrose Gel 15 GM/37.5 ML TUBE PO PRN ×2 (21:12)
[2020-07-31] MEDS ORDERED: 0.9 % Sodium Chloride 250 ML ONE (21:50)
[2020-08-01] MEDS: Insulin LISPRO 300 UNITS/3 ML VIAL SQ SCH ×6 (00:09→22:28)
[2020-08-01] MEDS: Octreotide 400 MCG in 0.9 % Sodium Chloride 100 ML IVC SCH ×2 (01:24→10:59)
[2020-08-01 02:40] LABS: Basophils % 0.4 %; Eosinophils # 0.1 K/mcL (0.0-0.6); Eosinophils % 2.6 %; Hematocrit 23.9 % (37.5-50.1); Hemoglobin 7.9 g/dL (12.9-16.9); Immature Granulocytes % 0.7 % (0-4); Lymphocytes # 0.7 K/mcL (0.6-4.6); Lymphocytes % 15.6 %; Mean Corpuscular HGB Conc 33.1 g/dL (31.6-35.5); Mean Corpuscular Hemoglobin 30.4 pg (28.0-33.3); Mean Corpuscular Volume 91.9 fL (83.0-100.0); Mean Platelet Volume 9.4 fL (9.4-12.4); Monocytes # 0.6 K/mcL (0.0-1.3); Monocytes % 13.6 %; Neutrophils # 3.1 K/mcL (1.6-8.9); Platelet Count 124 K/mcL (140-400); Red Cell Distribution Width 15.9 % (11.5-14.5); Segmented Neutrophils % 67.1 %; White Blood Count 4.6 K/mcL (4.3-11.1)
[2020-08-01 02:52] LABS: BUN/Creatinine Ratio 33 (6-26); Blood Urea Nitrogen 46 mg/dL (8-23); Carbon Dioxide 24 mEq/L (23-29); Chloride 104 mEq/L (98-107); Chol/HDL Ratio 3.9 (0-4.9); Cholesterol 94 mg/dL (< 200); Glucose 154 mg/dL (70-105); HDL Cholesterol 24 mg/dL (40-59); LDL Cholesterol,Calculated 55 mg/dL (< 100); Osmolality,Calculated 295 (280-300); Potassium 4.6 mEq/L (3.5-5.1); Sodium 135 mEq/L (136-145); Triglycerides 73 mg/dL (< 150); eGFR For African Americans > 60 (> 60); eGFR For Non-African Americans 50 (> 60)
[2020-08-01] MEDS: Pantoprazole 40 MG VIAL IVP SCH ×2 (06:13→17:26)
[2020-08-01 06:15] LABS: Hematocrit 24.1 % (37.5-50.1); Hemoglobin 7.6 g/dL (12.9-16.9)
[2020-08-01] MEDS: 0.9 % Sodium Chloride 1,000 ML IVC SCH ×2 (08:00→22:27)
[2020-08-01] MEDS: Nitroglycerin 0.4 MG TAB.SUBL SL PRN ×2 (09:27→20:34)
[2020-08-01 09:40] LABS: Adenovirus Not Detected (Not Detect); Bordetella Pertussis Not Detected (Not Detect); Chlamydophila pneumoniae Not Detected (Not Detect); Coronavirus 229E Not Detected (Not Detect); Coronavirus HKU1 Not Detected (Not Detect); Coronavirus NL63 Not Detected (Not Detect); Coronavirus OC43 Not Detected (Not Detect); Human Metapneumovirus Not Detected (Not Detect); Human Rhinovirus/Enterovirus Not Detected (Not Detect); Influenza A Subtype 2009 H1 Not Detected (Not Detect); Influenza B Not Detected (Not Detect); Mycoplasma pneumoniae Not Detected (Not Detect); Parainfluenza Virus 1 Not Detected (Not Detect); Parainfluenza Virus 2 Not Detected (Not Detect); Parainfluenza Virus 3 Not Detected (Not Detect); Parainfluenza Virus 4 Not Detected (Not Detect); Respiratory Syncytial Virus Not Detected (Not Detect); SARS-CoV-2 Not Detected (Not Detect)
[2020-08-01 10:06] LABS: Troponin I 2.06 ng/mL (< 0.04)
[2020-08-01] MEDS ORDERED: Gadolinium Contrast Agent (WT Based) IV PRN (11:04)
[2020-08-01 12:44] LABS: Albumin 2.9 g/dL (3.5-5.7); Albumin/Globulin Ratio 0.8 (1.1-2.2); Bilirubin,Direct 0.5 mg/dL (0.0-0.2); Bilirubin,Indirect 0.9 mg/dL (0.0-1.0); Bilirubin,Total 1.4 mg/dL (0.3-1.0); Globulin 3.7 g/dL (2.4-3.5); Total Protein 6.6 g/dL (6.4-8.9)
[2020-08-01] MEDS ORDERED: *HR* Propofol 200 MG/20 ML VIAL IVP ONE (15:54)
[2020-08-01] MEDS ORDERED: *HR* Etomidate 40 MG/20 ML VIAL IVP ONE (15:54)
[2020-08-01] MEDS ORDERED: Ondansetron 4 MG/2 ML VIAL IVP ONE (15:54)
[2020-08-01] MEDS: carvediloL 6.25 MG TABLET PO SCH (17:20)
[2020-08-01 19:38] LABS: Hematocrit 24.3 % (37.5-50.1); Hemoglobin 7.9 g/dL (12.9-16.9)
[2020-08-01] MEDS ORDERED: Bismuth Subsalicylate 120 ML ORAL SUSPENSION PO ONE (22:10)
[2020-08-01] MEDS ORDERED: Simethicone 80 MG TAB.CHEW PO PRN (23:08)
[2020-08-01] MEDS ORDERED: Simethicone 80 MG TAB.CHEW PO ONE (23:10)
[2020-08-02 01:34] LABS: Basophils % 0.2 %; Eosinophils # 0.1 K/mcL (0.0-0.6); Eosinophils % 2.2 %; Hematocrit 24.2 % (37.5-50.1); Hemoglobin 7.6 g/dL (12.9-16.9); Immature Granulocytes % 1.1 % (0-4); Lymphocytes # 0.6 K/mcL (0.6-4.6); Lymphocytes % 13.5 %; Mean Corpuscular HGB Conc 31.4 g/dL (31.6-35.5); Mean Corpuscular Hemoglobin 29.8 pg (28.0-33.3); Mean Corpuscular Volume 94.9 fL (83.0-100.0); Mean Platelet Volume 9.1 fL (9.4-12.4); Monocytes # 0.6 K/mcL (0.0-1.3); Monocytes % 13.3 %; Neutrophils # 3.2 K/mcL (1.6-8.9); Platelet Count 130 K/mcL (140-400); Red Blood Count 2.55 M/mcL (4.19-5.50); Red Cell Distribution Width 15.7 % (11.5-14.5); Segmented Neutrophils % 69.7 %; White Blood Count 4.6 K/mcL (4.3-11.1)
[2020-08-02 01:59] LABS: Calcium 7.9 mg/dL (8.6-10.3); Potassium 4.6 mEq/L (3.5-5.1); Troponin I 1.61 ng/mL (< 0.04)
[2020-08-02] MEDS: Pantoprazole 40 MG VIAL IVP SCH ×2 (05:39→17:11)
[2020-08-02] MEDS: carvediloL 6.25 MG TABLET PO SCH ×2 (09:58→17:11)
[2020-08-02] MEDS: Insulin LISPRO 300 UNITS/3 ML VIAL SQ SCH ×4 (10:09→20:36)
[2020-08-02] MEDS: Isosorbide MONOnitrate (24 HR) 30 MG TAB.ER.24H PO SCH (12:18)
[2020-08-02 13:07] LABS: Hematocrit 25.1 % (37.5-50.1); Hemoglobin 7.8 g/dL (12.9-16.9)
[2020-08-02] MEDS: 0.9 % Sodium Chloride 1,000 ML IVC SCH (15:09)
[2020-08-02] MEDS: *HR* OxyCODONE Immed Rel 5 MG TABLET PO PRN (19:56)
[2020-08-03] MEDS: *HR* OxyCODONE Immed Rel 5 MG TABLET PO PRN ×2 (04:35→12:10)
[2020-08-03] MEDS: Pantoprazole 40 MG VIAL IVP SCH ×2 (04:36→16:40)
[2020-08-03] MEDS: 0.9 % Sodium Chloride 1,000 ML IVC SCH ×3 (04:36→20:49)
[2020-08-03 07:18] LABS: Hepatitis B Surface Antibody 3.91 mIU/mL
[2020-08-03 07:30] LABS: Hepatitis B Surface Antigen Nonreactive (Nonreactive)
[2020-08-03] MEDS: carvediloL 6.25 MG TABLET PO SCH ×2 (07:30→16:41)
[2020-08-03] MEDS: Isosorbide MONOnitrate (24 HR) 30 MG TAB.ER.24H PO SCH (07:30)
[2020-08-03] MEDS ORDERED: 0.9 % Sodium Chloride 500 ML IVC ONE (07:44)
[2020-08-03 07:59] LABS: Hepatitis B Core IgM Nonreactive (Nonreactive); Hepatitis C Virus Antibody Nonreactive (Nonreactive)
[2020-08-03 08:00] LABS: Hepatitis A Antibody IgM Nonreactive (Nonreactive)
[2020-08-03] MEDS: Insulin LISPRO 300 UNITS/3 ML VIAL SQ SCH ×4 (12:11→22:15)
[2020-08-03 14:42] LABS: Basophils % 0.2 %; Eosinophils # 0.2 K/mcL (0.0-0.6); Hematocrit 23.4 % (37.5-50.1); Hemoglobin 7.4 g/dL (12.9-16.9); Immature Granulocytes % 1.4 % (0-4); Lymphocytes # 0.6 K/mcL (0.6-4.6); Lymphocytes % 11.2 %; Mean Corpuscular HGB Conc 31.6 g/dL (31.6-35.5); Mean Corpuscular Hemoglobin 31.4 pg (28.0-33.3); Mean Corpuscular Volume 99.2 fL (83.0-100.0); Monocytes # 0.7 K/mcL (0.0-1.3); Monocytes % 13.2 %; Neutrophils # 3.6 K/mcL (1.6-8.9); Platelet Count 135 K/mcL (140-400); Red Blood Count 2.36 M/mcL (4.19-5.50); Red Cell Distribution Width 15.2 % (11.5-14.5); White Blood Count 5.1 K/mcL (4.3-11.1)
[2020-08-03 15:05] LABS: Albumin 2.8 g/dL (3.5-5.7); Albumin/Globulin Ratio 0.8 (1.1-2.2); Bilirubin,Total 0.9 mg/dL (0.3-1.0); Calcium 7.8 mg/dL (8.6-10.3); Globulin 3.6 g/dL (2.4-3.5); Potassium 4.8 mEq/L (3.5-5.1); Total Protein 6.4 g/dL (6.4-8.9)
[2020-08-03] MEDS ORDERED: Acetaminophen 325 MG TABLET PO ONE (16:20)
[2020-08-04] MEDS: 0.9 % Sodium Chloride 1,000 ML IVC SCH ×4 (00:13→19:56)
[2020-08-04] MEDS: *HR* OxyCODONE Immed Rel 5 MG TABLET PO PRN ×2 (03:24→13:57)
[2020-08-04] MEDS: Pantoprazole 40 MG VIAL IVP SCH ×2 (05:32→17:55)
[2020-08-04] MEDS ORDERED: 0.9 % Sodium Chloride 250 ML IVC SCH (08:00)
[2020-08-04 08:43] LABS: Hematocrit 24.6 % (37.5-50.1); Hemoglobin 7.7 g/dL (12.9-16.9); Mean Corpuscular HGB Conc 31.3 g/dL (31.6-35.5); Mean Corpuscular Hemoglobin 30.7 pg (28.0-33.3); Mean Platelet Volume 9.4 fL (9.4-12.4); Platelet Count 155 K/mcL (140-400); Red Blood Count 2.51 M/mcL (4.19-5.50); Red Cell Distribution Width 15.3 % (11.5-14.5); White Blood Count 4.5 K/mcL (4.3-11.1)
[2020-08-04] MEDS: Insulin LISPRO 300 UNITS/3 ML VIAL SQ SCH ×4 (08:45→19:57)
[2020-08-04 09:26] LABS: Albumin 2.8 g/dL (3.5-5.7); Albumin/Globulin Ratio 0.8 (1.1-2.2); Bilirubin,Total 1.1 mg/dL (0.3-1.0); Calcium 7.8 mg/dL (8.6-10.3); Globulin 3.7 g/dL (2.4-3.5); Potassium 4.8 mEq/L (3.5-5.1); Total Protein 6.5 g/dL (6.4-8.9)
[2020-08-04] MEDS: Isosorbide MONOnitrate (24 HR) 30 MG TAB.ER.24H PO SCH ×2 (09:52→14:11)
[2020-08-04] MEDS: carvediloL 6.25 MG TABLET PO SCH ×2 (09:52→17:40)
[2020-08-04] MEDS ORDERED: 0.9 % Sodium Chloride 250 ML ONE (09:57)
[2020-08-04] MEDS ORDERED: Acetaminophen 325 MG TABLET PO ONE (10:50)
[2020-08-04 16:08] LABS: Immature Reticulocyte % 36.1 % (11.0-38.0); Retculocyte # 0.08 M/mcL (0.05-0.10)
[2020-08-04 16:21] LABS: % Iron Saturation 23 % (20-55); Iron 57 mcg/dL (65-175); Lactate Dehydrogenase 150 Units/L (140-271); Transferrin 175 mg/dL (203-362)
[2020-08-04 16:42] LABS: Ferritin 87 ng/mL (20-250)
[2020-08-04 16:45] LABS: Folate 6.2 ng/mL (3.0-16.0)
[2020-08-04 16:49] LABS: Vitamin B12 > 1500 pg/mL (250-1100)
[2020-08-04 18:13] LABS: Hematocrit 25.8 % (37.5-50.1)
[2020-08-05] MEDS: Pantoprazole 40 MG VIAL IVP SCH (05:37)
[2020-08-05] MEDS: 0.9 % Sodium Chloride 1,000 ML IVC SCH ×2 (05:43→09:42)
[2020-08-05 06:22] LABS: Hematocrit 24.7 % (37.5-50.1); Hemoglobin 7.8 g/dL (12.9-16.9); Mean Corpuscular HGB Conc 31.6 g/dL (31.6-35.5); Mean Corpuscular Hemoglobin 30.5 pg (28.0-33.3); Mean Corpuscular Volume 96.5 fL (83.0-100.0); Mean Platelet Volume 9.2 fL (9.4-12.4); Platelet Count 139 K/mcL (140-400); Red Blood Count 2.56 M/mcL (4.19-5.50); Red Cell Distribution Width 15.7 % (11.5-14.5); White Blood Count 3.8 K/mcL (4.3-11.1)
[2020-08-05 06:43] LABS: Alanine Aminotransferase 12 Units/L (7-52); Albumin 2.6 g/dL (3.5-5.7); Albumin/Globulin Ratio 0.8 (1.1-2.2); Alkaline Phosphatase 121 Units/L (34-104); Aspartate Amino Transferase 24 Units/L (13-39); BUN/Creatinine Ratio 29 (6-26); Bilirubin,Total 1.3 mg/dL (0.3-1.0); Blood Urea Nitrogen 37 mg/dL (8-23); Calcium 7.8 mg/dL (8.6-10.3); Carbon Dioxide 19 mEq/L (23-29); Chloride 112 mEq/L (98-107); Globulin 3.4 g/dL (2.4-3.5); Glucose 111 mg/dL (70-105); Osmolality,Calculated 291 (280-300); Potassium 5.1 mEq/L (3.5-5.1); Sodium 136 mEq/L (136-145); eGFR For African Americans > 60 (> 60); eGFR For Non-African Americans 55 (> 60)
[2020-08-05] MEDS: Insulin LISPRO 300 UNITS/3 ML VIAL SQ SCH ×2 (08:01→12:21)
[2020-08-05] MEDS: carvediloL 6.25 MG TABLET PO SCH (09:44)
[2020-08-05] MEDS: Isosorbide MONOnitrate (24 HR) 30 MG TAB.ER.24H PO SCH (09:44)
[2020-08-05] MEDS: *HR* OxyCODONE Immed Rel 5 MG TABLET PO PRN (09:49)
[2020-08-05 10:35] VITALS: BP 122/60
[2020-08-06 18:41] LABS: Kappa Qnt Free Light Chains 123.78 mg/L (3.30-19.40); Lambda Qnt Free Light Chains 117.49 mg/L (5.71-26.30)
[2020-08-07 07:52] LABS: Immunoglobulin G 1480 mg/dL (768-1632)
[2020-08-07 07:53] LABS: Immunoglobulin A 678 mg/dL (68-408); Immunoglobulin M 28 mg/dL (35-263)
== END 2020-08-05 15:55 | disposition home health service (06) | DRG 368 ==
LOC: EMEROOARM 13:58 → 2NNU 13:58 → SUATTDRO 17:20 → 3ANU 08-03 18:21
PROVIDERS: ADMIT Internal Medicine; ATTEND Family Medicine

== ENCOUNTER 2020-08-25 22:44 | Inpatient (IN) ==
[2020-08-25] MEDS ORDERED: *HR* FentaNYL (PF) 100 MCG/2 ML VIAL IVP ONE (22:47)
[2020-08-26 00:59] LABS: Basophils % 0.5 %
[2020-08-26 01:01] LABS: Eosinophils # 0.1 K/mcL (0.0-0.6); Eosinophils % 2.3 %; Hematocrit 24.1 % (37.5-50.1); Hemoglobin 7.7 g/dL (12.9-16.9); Immature Granulocytes % 0.5 % (0-4); Immature Platelets 1.4 % (1.1-6.1); Lymphocytes # 0.6 K/mcL (0.6-4.6); Lymphocytes % 12.8 %; Mean Corpuscular Hemoglobin 30.7 pg (28.0-33.3); Monocytes # 0.6 K/mcL (0.0-1.3); Neutrophils # 3.1 K/mcL (1.6-8.9); Platelet Count 102 K/mcL (140-400); Red Blood Count 2.51 M/mcL (4.19-5.50); Red Cell Distribution Width 16.5 % (11.5-14.5); Segmented Neutrophils % 69.9 %; White Blood Count 4.4 K/mcL (4.3-11.1)
[2020-08-26 01:24] LABS: Alanine Aminotransferase 8 Units/L (7-52); Albumin/Globulin Ratio 0.9 (1.1-2.2); Alkaline Phosphatase 85 Units/L (34-104); Aspartate Amino Transferase 18 Units/L (13-39); BUN/Creatinine Ratio 21 (6-26); Bilirubin,Direct 0.4 mg/dL (0.0-0.2); Bilirubin,Indirect 0.7 mg/dL (0.0-1.0); Bilirubin,Total 1.1 mg/dL (0.3-1.0); Blood Urea Nitrogen 29 mg/dL (8-23); Calcium 8.6 mg/dL (8.6-10.3); Carbon Dioxide 24 mEq/L (23-29); Chloride 105 mEq/L (98-107); Globulin 3.4 g/dL (2.4-3.5); Glucose 127 mg/dL (70-105); Osmolality,Calculated 295 (280-300); Potassium 4.3 mEq/L (3.5-5.1); Sodium 139 mEq/L (136-145); Total Protein 6.4 g/dL (6.4-8.9); eGFR For African Americans > 60 (> 60); eGFR For Non-African Americans 51 (> 60)
[2020-08-26 01:39] LABS: Troponin I 0.07 ng/mL (< 0.04)
[2020-08-26 02:08] LABS: Bilirubin,Urine Negative (Negative); Blood,Urine Negative (Negative); Clarity,Urine Clear (Clear); Color,Urine Light-Yellow (Yellow); Glucose,Urine (UA) Normal (Normal); Ketones,Urine Trace mg/dL (Negative); Leukocyte Esterase,Urine Negative (Negative); Nitrite,Urine Negative (Negative); Protein,Urine Trace mg/dL (Neg-Trace); Specific Gravity,Urine 1.019 (1.010-1.025)
[2020-08-26 03:30] LABS: Adenovirus Not Detected (Not Detect); Bordetella Pertussis Not Detected (Not Detect); Chlamydophila pneumoniae Not Detected (Not Detect); Coronavirus 229E Not Detected (Not Detect); Coronavirus HKU1 Not Detected (Not Detect); Coronavirus NL63 Not Detected (Not Detect); Coronavirus OC43 Not Detected (Not Detect); Human Metapneumovirus Not Detected (Not Detect); Human Rhinovirus/Enterovirus Not Detected (Not Detect); Influenza A Subtype 2009 H1 Not Detected (Not Detect); Influenza B Not Detected (Not Detect); Mycoplasma pneumoniae Not Detected (Not Detect); Parainfluenza Virus 1 Not Detected (Not Detect); Parainfluenza Virus 2 Not Detected (Not Detect); Parainfluenza Virus 3 Not Detected (Not Detect); Parainfluenza Virus 4 Not Detected (Not Detect); Respiratory Syncytial Virus Not Detected (Not Detect); SARS-CoV-2 Not Detected (Not Detect)
[2020-08-26] MEDS ORDERED: *HR* Promethazine 25 MG/ML VIAL IVP PRN (04:14)
[2020-08-26] MEDS ORDERED: Naloxone 0.4 MG/ML INJ IVP PRN (04:14)
[2020-08-26] MEDS ORDERED: 0.9 % Sodium Chloride 250 ML ONE (04:16)
[2020-08-26] MEDS ORDERED: *HR* Midazolam HCl 2 MG/2 ML VIAL IVP ONE (10:42)
[2020-08-26] MEDS ORDERED: *HR* Midazolam HCl 5 MG/5 ML VIAL IVP ONE (10:42)
[2020-08-26] MEDS ORDERED: Ondansetron 4 MG/2 ML VIAL IVP PRN (10:58)
[2020-08-26] MEDS ORDERED: Lactulose 200 GM, Sodium Chloride IRRigation 700 ML RC ONE (11:50)
[2020-08-26] MEDS ORDERED: Iron Sucrose Complex 400 MG in 0.9 % Sodium Chloride 250 ML IVPB ONE (14:36)
[2020-08-26] MEDS: Albumin 25% 25gram/100mL 25 GM/100 ML IV.SOLN IVPB SCH (16:59)
[2020-08-26] MEDS: carvediloL 6.25 MG TABLET PO SCH (17:00)
[2020-08-26 18:59] LABS: Hematocrit 26.4 % (37.5-50.1); Hemoglobin 8.6 g/dL (12.9-16.9)
[2020-08-26] MEDS: FentaNYL (PF) 1,000 MCG/100 ML IV.SOLN IVC SCH (20:00)
[2020-08-26] MEDS: Midazolam HCl 50 MG/100 ML IV.SOLN IVC SCH (20:00)
[2020-08-26] MEDS ORDERED: Artificial Tears SOLN 15 ML BOTTLE BOTH EYES PRN (20:06)
[2020-08-26 20:12] LABS: VBG HCO3 22 mEq/L (21-27); VBG PCO2 34 mmHg (41-51); VBG PH 7.43 pH Units (7.32-7.42); VBG PO2 210 mmHg (25-50)
[2020-08-26] MEDS: Pantoprazole 40 MG VIAL IVP SCH (21:02)
[2020-08-26] MEDS: cefTRIAXone 1,000 MG in Water for inj. (sterile) 10 ML IVP SCH (21:02)
[2020-08-26] MEDS: Octreotide 400 MCG in 0.9 % Sodium Chloride 100 ML IVC SCH (21:02)
[2020-08-26] MEDS: Chlorhexidine Rinse 15 ML MOUTHWASH MM SCH (21:02)
[2020-08-26 21:22] LABS: ABG Base Excess 0 mEq/L (-2 to 3); ABG HCO3 23 mEq/L (21-27); ABG Oxygen Saturation 100 % (95-98); ABG PCO2 29 mmHg (35-45); ABG PH 7.51 pH Units (7.32-7.45); ABG PO2 316 mmHg (85-104); ABG TCO2 24 mEq/L (20-26); Blood Gas Modality ASSIST CONTROL; Blood Gas VT 430 cc
[2020-08-26 21:36] LABS: INR 1.2; Prothrombin Time 13.8 Seconds (9.4-12.1)
[2020-08-26 21:38] LABS: Activated Partial Thrombo Time 40.3 Seconds (26.0-36.0)
[2020-08-27] MEDS: Artificial Tears SOLN 15 ML BOTTLE BOTH EYES SCH ×7 (00:07→23:19)
[2020-08-27] MEDS ORDERED: Albumin 25% 25gram/100mL 25 GM/100 ML IV.SOLN IVPB SCH (00:15)
[2020-08-27] MEDS: Albumin 25% 25gram/100mL 25 GM/100 ML IV.SOLN IVPB SCH ×5 (00:19→23:20)
[2020-08-27 00:23] LABS: Hematocrit 25.6 % (37.5-50.1); Hemoglobin 8.3 g/dL (12.9-16.9)
[2020-08-27 03:35] LABS: Hematocrit 24.7 % (37.5-50.1); Immature Granulocytes % 0.5 % (0-4); Lymphocytes # 0.3 K/mcL (0.6-4.6); Lymphocytes % 5.6 %; Mean Corpuscular HGB Conc 32.4 g/dL (31.6-35.5); Mean Corpuscular Hemoglobin 30.8 pg (28.0-33.3); Mean Platelet Volume 9.5 fL (9.4-12.4); Monocytes # 0.6 K/mcL (0.0-1.3); Monocytes % 9.9 %; Neutrophils # 5.1 K/mcL (1.6-8.9); Platelet Count 102 K/mcL (140-400); Red Cell Distribution Width 16.4 % (11.5-14.5); White Blood Count 6.1 K/mcL (4.3-11.1)
[2020-08-27 03:40] LABS: INR 1.3; Prothrombin Time 14.8 Seconds (9.4-12.1)
[2020-08-27 03:55] LABS: Alanine Aminotransferase 7 Units/L (7-52); Albumin 3.5 g/dL (3.5-5.7); Albumin/Globulin Ratio 1.1 (1.1-2.2); Alkaline Phosphatase 73 Units/L (34-104); Aspartate Amino Transferase 18 Units/L (13-39); BUN/Creatinine Ratio 30 (6-26); Bilirubin,Total 1.9 mg/dL (0.3-1.0); Blood Urea Nitrogen 34 mg/dL (8-23); Calcium 8.8 mg/dL (8.6-10.3); Carbon Dioxide 18 mEq/L (23-29); Chloride 109 mEq/L (98-107); Globulin 3.2 g/dL (2.4-3.5); Glucose 158 mg/dL (70-105); Magnesium 2.4 mg/dL (1.6-2.6); Osmolality,Calculated 307 (280-300); Phosphorous 3.5 mg/dL (2.7-4.5); Potassium 4.3 mEq/L (3.5-5.1); Sodium 143 mEq/L (136-145); Total Protein 6.7 g/dL (6.4-8.9); eGFR For African Americans > 60 (> 60); eGFR For Non-African Americans > 60 (> 60)
[2020-08-27 04:20] LABS: ABG Base Excess -3 mEq/L (-2 to 3); ABG HCO3 20 mEq/L (21-27); ABG Oxygen Saturation 99 % (95-98); ABG PCO2 28 mmHg (35-45); ABG PH 7.46 pH Units (7.32-7.45); ABG PO2 121 mmHg (85-104); ABG TCO2 21 mEq/L (20-26); Blood Gas Modality ASSIST CONTROL; Blood Gas VT 350 cc
[2020-08-27] MEDS: Pantoprazole 40 MG VIAL IVP SCH ×2 (05:23→16:45)
[2020-08-27] MEDS: carvediloL 6.25 MG TABLET PO SCH ×2 (07:06→16:38)
[2020-08-27] MEDS: Octreotide 400 MCG in 0.9 % Sodium Chloride 100 ML IVC SCH ×3 (07:10→17:44)
[2020-08-27] MEDS: Chlorhexidine Rinse 15 ML MOUTHWASH MM SCH ×2 (07:44→19:27)
[2020-08-27] MEDS: cefTRIAXone 1,000 MG in Water for inj. (sterile) 10 ML IVP SCH (07:45)
[2020-08-27] MEDS: Isosorbide MONOnitrate (24 HR) 30 MG TAB.ER.24H PO SCH (07:47)
[2020-08-27] MEDS: Cyanocobalamin (B-12) 1,000 MCG TABLET PO SCH (07:47)
[2020-08-27] MEDS ORDERED: Aspirin Enteric Coated 81 MG Tablet PO SCH (09:00)
[2020-08-27 09:16] LABS: Hematocrit 25.2 % (37.5-50.1); Hemoglobin 8.2 g/dL (12.9-16.9)
[2020-08-27] MEDS ORDERED: Ringers Solution, Lactated 1,000 ML ONE (14:47)
[2020-08-27] MEDS: Ringers Solution, Lactated 1,000 ML IVC SCH (14:59)
[2020-08-27 15:03] LABS: Hematocrit 27.1 % (37.5-50.1); Hemoglobin 8.4 g/dL (12.9-16.9)
[2020-08-27] MEDS: Midazolam HCl 50 MG/100 ML IV.SOLN IVC SCH (19:24)
[2020-08-27] MEDS: FentaNYL (PF) 1,000 MCG/100 ML IV.SOLN IVC SCH (19:24)
[2020-08-27] MEDS: Lactulose Oral Soln 20 GM/30 ML UDC GTUBE SCH (20:08)
[2020-08-28] MEDS: Ringers Solution, Lactated 1,000 ML IVC SCH ×2 (00:53→07:46)
[2020-08-28] MEDS: Octreotide 400 MCG in 0.9 % Sodium Chloride 100 ML IVC SCH ×3 (02:22→16:34)
[2020-08-28] MEDS: Artificial Tears SOLN 15 ML BOTTLE BOTH EYES SCH ×6 (03:21→23:50)
[2020-08-28 04:16] LABS: ABG Base Excess -2 mEq/L (-2 to 3); ABG HCO3 20 mEq/L (21-27); ABG Oxygen Saturation 100 % (95-98); ABG PCO2 23 mmHg (35-45); ABG PH 7.54 pH Units (7.32-7.45); ABG PO2 148 mmHg (85-104); ABG TCO2 21 mEq/L (20-26); Blood Gas Modality ASSIST CONTROL; Blood Gas VT 350 cc
[2020-08-28 04:20] LABS: Basophils % 0.1 %; Hematocrit 24.4 % (37.5-50.1); Hemoglobin 7.9 g/dL (12.9-16.9); Immature Granulocytes % 1.8 % (0-4); Lymphocytes # 0.4 K/mcL (0.6-4.6); Lymphocytes % 4.5 %; Mean Corpuscular HGB Conc 32.4 g/dL (31.6-35.5); Mean Corpuscular Hemoglobin 31.2 pg (28.0-33.3); Mean Corpuscular Volume 96.4 fL (83.0-100.0); Mean Platelet Volume 10.2 fL (9.4-12.4); Monocytes # 0.9 K/mcL (0.0-1.3); Monocytes % 10.5 %; Neutrophils # 7.2 K/mcL (1.6-8.9); Nucleated Red Blood Cells 0.8 /100 WBC (0); Platelet Count 113 K/mcL (140-400); Red Blood Count 2.53 M/mcL (4.19-5.50); Segmented Neutrophils % 83.1 %; White Blood Count 8.7 K/mcL (4.3-11.1)
[2020-08-28 04:32] LABS: BUN/Creatinine Ratio 36 (6-26); Blood Urea Nitrogen 38 mg/dL (8-23); Calcium 9.1 mg/dL (8.6-10.3); Carbon Dioxide 20 mEq/L (23-29); Chloride 110 mEq/L (98-107); Glucose 183 mg/dL (70-105); Osmolality,Calculated 312 (280-300); Potassium 4.1 mEq/L (3.5-5.1); Sodium 144 mEq/L (136-145); eGFR For African Americans > 60 (> 60); eGFR For Non-African Americans > 60 (> 60)
[2020-08-28] MEDS: Pantoprazole 40 MG VIAL IVP SCH ×2 (05:34→14:45)
[2020-08-28] MEDS: Albumin 25% 25gram/100mL 25 GM/100 ML IV.SOLN IVPB SCH ×3 (07:33→23:50)
[2020-08-28] MEDS: cefTRIAXone 1,000 MG in Water for inj. (sterile) 10 ML IVP SCH (07:35)
[2020-08-28] MEDS: Lactulose Oral Soln 20 GM/30 ML UDC GTUBE SCH ×2 (07:35→19:32)
[2020-08-28] MEDS: Chlorhexidine Rinse 15 ML MOUTHWASH MM SCH ×2 (07:36→19:32)
[2020-08-28] MEDS: carvediloL 6.25 MG TABLET PO SCH ×2 (07:36→14:45)
[2020-08-28] MEDS: Isosorbide MONOnitrate (24 HR) 30 MG TAB.ER.24H PO SCH (07:36)
[2020-08-28] MEDS: Cyanocobalamin (B-12) 1,000 MCG TABLET PO SCH (07:42)
[2020-08-28] MEDS ORDERED: 0.9 % Sodium Chloride 250 ML ONE (08:28)
[2020-08-28] MEDS ORDERED: *HR* Midazolam HCl 5 MG/5 ML VIAL IVP ONE (10:09)
[2020-08-28] MEDS ORDERED: Dextrose Gel 15 GM/37.5 ML TUBE PO PRN ×2 (17:06)
[2020-08-28] MEDS ORDERED: D5% in Water 1,000 ML IVC PRN (17:06)
[2020-08-28] MEDS ORDERED: *HR* Dextrose 50 % in Water (Vial) 50 ML VIAL IVP PRN (17:06)
[2020-08-28] MEDS: Insulin LISPRO 300 UNITS/3 ML VIAL SQ SCH ×2 (17:19→23:50)
[2020-08-28] MEDS: FentaNYL (PF) 1,000 MCG/100 ML IV.SOLN IVC SCH (19:32)
[2020-08-28] MEDS: Midazolam HCl 50 MG/100 ML IV.SOLN IVC SCH (19:33)
[2020-08-29] MEDS: Octreotide 400 MCG in 0.9 % Sodium Chloride 100 ML IVC SCH ×2 (00:56→07:34)
[2020-08-29] MEDS ORDERED: Dexmedetomidine HCl 400 MCG/100 ML MLS IVC SCH (01:00)
[2020-08-29] MEDS ORDERED: *HR* FentaNYL (PF) 100 MCG/2 ML VIAL IVP ONE (01:29)
[2020-08-29] MEDS: Artificial Tears SOLN 15 ML BOTTLE BOTH EYES SCH ×5 (03:14→20:47)
[2020-08-29 03:38] LABS: Basophils % 0.1 %; Eosinophils % 0.1 %; Mean Corpuscular Volume 96.5 fL (83.0-100.0); Nucleated Red Blood Cells 0.8 /100 WBC (0)
[2020-08-29 03:40] LABS: Hematocrit 24.6 % (37.5-50.1); Hemoglobin 7.8 g/dL (12.9-16.9); Immature Granulocytes % 1.2 % (0-4); Immature Platelets 2.4 % (1.1-6.1); Lymphocytes # 0.4 K/mcL (0.6-4.6); Lymphocytes % 5.1 %; Mean Corpuscular HGB Conc 31.7 g/dL (31.6-35.5); Mean Corpuscular Hemoglobin 30.6 pg (28.0-33.3); Mean Platelet Volume 9.9 fL (9.4-12.4); Monocytes # 0.9 K/mcL (0.0-1.3); Monocytes % 11.8 %; Neutrophils # 6.1 K/mcL (1.6-8.9); Platelet Count 81 K/mcL (140-400); Red Blood Count 2.55 M/mcL (4.19-5.50); Red Cell Distribution Width 17.6 % (11.5-14.5); Segmented Neutrophils % 81.7 %; White Blood Count 7.4 K/mcL (4.3-11.1)
[2020-08-29 03:43] LABS: INR 1.4; Prothrombin Time 16.1 Seconds (9.4-12.1)
[2020-08-29 03:57] LABS: Alanine Aminotransferase 9 Units/L (7-52); Albumin 4.2 g/dL (3.5-5.7); Albumin/Globulin Ratio 1.8 (1.1-2.2); Alkaline Phosphatase 53 Units/L (34-104); Aspartate Amino Transferase 23 Units/L (13-39); BUN/Creatinine Ratio 39 (6-26); Bilirubin,Total 1.8 mg/dL (0.3-1.0); Blood Urea Nitrogen 43 mg/dL (8-23); Calcium 9.3 mg/dL (8.6-10.3); Carbon Dioxide 24 mEq/L (23-29); Chloride 111 mEq/L (98-107); Globulin 2.4 g/dL (2.4-3.5); Glucose 207 mg/dL (70-105); Magnesium 2.7 mg/dL (1.6-2.6); Osmolality,Calculated 317 (280-300); Phosphorous 1.5 mg/dL (2.7-4.5); Potassium 3.2 mEq/L (3.5-5.1); Sodium 145 mEq/L (136-145); Total Protein 6.6 g/dL (6.4-8.9); eGFR For African Americans > 60 (> 60); eGFR For Non-African Americans > 60 (> 60)
[2020-08-29] MEDS ORDERED: Potassium Chloride Elixir 20 MEQ/15 ML UDC GTUBE ONE (04:07)
[2020-08-29 04:32] LABS: BUN/Creatinine Ratio 39 (6-26); Blood Urea Nitrogen 45 mg/dL (8-23); Calcium 9.3 mg/dL (8.6-10.3); Carbon Dioxide 24 mEq/L (23-29); Chloride 112 mEq/L (98-107); Glucose 210 mg/dL (70-105); Osmolality,Calculated 316 (280-300); Potassium 3.2 mEq/L (3.5-5.1); Sodium 144 mEq/L (136-145); eGFR For African Americans > 60 (> 60); eGFR For Non-African Americans > 60 (> 60)
[2020-08-29 04:39] LABS: ABG Base Excess 1 mEq/L (-2 to 3); ABG HCO3 24 mEq/L (21-27); ABG Oxygen Saturation 99 % (95-98); ABG PCO2 32 mmHg (35-45); ABG PH 7.49 pH Units (7.32-7.45); ABG PO2 137 mmHg (85-104); ABG TCO2 25 mEq/L (20-26); Blood Gas Modality SIMV(VC)+PS; Blood Gas Pressure Support 0 cm H2O; Blood Gas VT 320 cc
[2020-08-29] MEDS: Insulin LISPRO 300 UNITS/3 ML VIAL SQ SCH ×3 (05:12→17:06)
[2020-08-29] MEDS: Pantoprazole 40 MG VIAL IVP SCH ×2 (05:12→15:56)
[2020-08-29] MEDS ORDERED: Potassium Phosphate 44 MEQ in 0.9 % Sodium Chloride 250 ML IVPB ONE (06:42)
[2020-08-29] MEDS: cefTRIAXone 1,000 MG in Water for inj. (sterile) 10 ML IVP SCH (07:33)
[2020-08-29] MEDS: Lactulose Oral Soln 20 GM/30 ML UDC GTUBE SCH ×3 (07:33→20:46)
[2020-08-29] MEDS: Chlorhexidine Rinse 15 ML MOUTHWASH MM SCH ×2 (07:33→20:46)
[2020-08-29] MEDS: Albumin 25% 25gram/100mL 25 GM/100 ML IV.SOLN IVPB SCH ×2 (07:34→15:17)
[2020-08-29] MEDS: Cyanocobalamin (B-12) 1,000 MCG TABLET PO SCH (07:35)
[2020-08-29] MEDS: carvediloL 6.25 MG TABLET PO SCH (07:35)
[2020-08-29] MEDS: Isosorbide MONOnitrate (24 HR) 30 MG TAB.ER.24H PO SCH (08:27)
[2020-08-29] MEDS: FentaNYL (PF) 1,000 MCG/100 ML IV.SOLN IVC SCH (10:36)
[2020-08-29] MEDS: Ipratropium/Albuterol Neb 3 ML IH SCH ×3 (11:18→21:40)
[2020-08-29] MEDS: Midazolam HCl 50 MG/100 ML IV.SOLN IVC SCH (15:19)
[2020-08-29 18:36] LABS: VBG Ionized Calcium 1.25 mmol/L (1.15-1.35)
[2020-08-29 19:02] LABS: BUN/Creatinine Ratio 40 (6-26); Blood Urea Nitrogen 49 mg/dL (8-23); Calcium 9.1 mg/dL (8.6-10.3); Carbon Dioxide 23 mEq/L (23-29); Chloride 116 mEq/L (98-107); Glucose 251 mg/dL (70-105); Magnesium 2.8 mg/dL (1.6-2.6); Osmolality,Calculated 323 (280-300); Phosphorous 2.4 mg/dL (2.7-4.5); Potassium 3.8 mEq/L (3.5-5.1); Sodium 146 mEq/L (136-145); eGFR For African Americans > 60 (> 60); eGFR For Non-African Americans 58 (> 60)
[2020-08-29] MEDS: *HR* FentaNYL (PF) 100 MCG/2 ML VIAL IVP PRN ×2 (20:45→22:04)
[2020-08-30] MEDS: *HR* FentaNYL (PF) 100 MCG/2 ML VIAL IVP PRN
[2020-08-30] MEDS: Albumin 25% 25gram/100mL 25 GM/100 ML IV.SOLN IVPB SCH ×3 (00:16→14:53)
[2020-08-30] MEDS: Artificial Tears SOLN 15 ML BOTTLE BOTH EYES SCH ×6 (00:17→19:57)
[2020-08-30] MEDS: Insulin LISPRO 300 UNITS/3 ML VIAL SQ SCH ×4 (00:18→17:06)
[2020-08-30] MEDS: Ipratropium/Albuterol Neb 3 ML IH SCH ×4 (03:55→21:54)
[2020-08-30] MEDS: FentaNYL (PF) 1,000 MCG/100 ML IV.SOLN IVC SCH ×4 (04:08→16:56)
[2020-08-30 04:28] LABS: Basophils % 0.1 %; Hemoglobin 7.3 g/dL (12.9-16.9); Mean Corpuscular Volume 98.3 fL (83.0-100.0); Red Cell Distribution Width 17.9 % (11.5-14.5)
[2020-08-30 04:30] LABS: Eosinophils # 0.1 K/mcL (0.0-0.6); Eosinophils % 1.2 %; Hematocrit 23.5 % (37.5-50.1); Immature Granulocytes % 0.9 % (0-4); Lymphocytes # 0.4 K/mcL (0.6-4.6); Lymphocytes % 6.2 %; Mean Corpuscular HGB Conc 31.1 g/dL (31.6-35.5); Mean Corpuscular Hemoglobin 30.5 pg (28.0-33.3); Mean Platelet Volume 10.2 fL (9.4-12.4); Monocytes # 0.8 K/mcL (0.0-1.3); Monocytes % 11.4 %; Neutrophils # 5.4 K/mcL (1.6-8.9); Red Blood Count 2.39 M/mcL (4.19-5.50); Segmented Neutrophils % 80.2 %; White Blood Count 6.7 K/mcL (4.3-11.1)
[2020-08-30 04:32] LABS: Platelet Count 77 K/mcL (140-400)
[2020-08-30 04:36] LABS: INR 1.2; Prothrombin Time 13.9 Seconds (9.4-12.1)
[2020-08-30 04:48] LABS: Alanine Aminotransferase 11 Units/L (7-52); Albumin 4.2 g/dL (3.5-5.7); Albumin/Globulin Ratio 1.8 (1.1-2.2); Alkaline Phosphatase 64 Units/L (34-104); Aspartate Amino Transferase 26 Units/L (13-39); BUN/Creatinine Ratio 43 (6-26); Bilirubin,Total 1.5 mg/dL (0.3-1.0); Blood Urea Nitrogen 50 mg/dL (8-23); Carbon Dioxide 24 mEq/L (23-29); Chloride 116 mEq/L (98-107); Globulin 2.3 g/dL (2.4-3.5); Glucose 202 mg/dL (70-105); Magnesium 2.6 mg/dL (1.6-2.6); Osmolality,Calculated 325 (280-300); Phosphorous 1.7 mg/dL (2.7-4.5); Potassium 3.5 mEq/L (3.5-5.1); Sodium 148 mEq/L (136-145); Total Protein 6.5 g/dL (6.4-8.9); eGFR For African Americans > 60 (> 60); eGFR For Non-African Americans > 60 (> 60)
[2020-08-30] MEDS ORDERED: Potassium Phosphate 44 MEQ in 0.9 % Sodium Chloride 250 ML IVPB ONE (05:03)
[2020-08-30 05:11] LABS: ABG Base Excess 0 mEq/L (-2 to 3); ABG HCO3 26 mEq/L (21-27); ABG Oxygen Saturation 98 % (95-98); ABG PCO2 43 mmHg (35-45); ABG PH 7.38 pH Units (7.32-7.45); ABG PO2 100 mmHg (85-104); ABG TCO2 27 mEq/L (20-26); Blood Gas Modality CPAP/PS; Blood Gas Pressure Support 8 cm H2O
[2020-08-30] MEDS: Pantoprazole 40 MG VIAL IVP SCH ×2 (05:51→14:54)
[2020-08-30] MEDS: cefTRIAXone 1,000 MG in Water for inj. (sterile) 10 ML IVP SCH (07:00)
[2020-08-30] MEDS: Lactulose Oral Soln 20 GM/30 ML UDC GTUBE SCH ×4 (07:00→20:32)
[2020-08-30] MEDS: Chlorhexidine Rinse 15 ML MOUTHWASH MM SCH ×2 (07:00→20:32)
[2020-08-30] MEDS: Cyanocobalamin (B-12) 1,000 MCG TABLET PO SCH (07:03)
[2020-08-30] MEDS ORDERED: 0.9 % Sodium Chloride 250 ML IVC SCH (07:45)
[2020-08-30] MEDS ORDERED: Aspirin Enteric Coated 81 MG Tablet PO SCH (09:00)
[2020-08-30] MEDS: Aspirin 81 MG TAB.CHEW PO SCH (09:10)
[2020-08-30 15:34] LABS: Basophils % 0.3 %; Eosinophils # 0.1 K/mcL (0.0-0.6); Eosinophils % 1.8 %; Hematocrit 29.2 % (37.5-50.1); Immature Granulocytes % 1.4 % (0-4); Lymphocytes # 0.4 K/mcL (0.6-4.6); Lymphocytes % 5.8 %; Mean Corpuscular HGB Conc 30.8 g/dL (31.6-35.5); Mean Corpuscular Hemoglobin 30.8 pg (28.0-33.3); Mean Platelet Volume 9.7 fL (9.4-12.4); Monocytes # 0.9 K/mcL (0.0-1.3); Monocytes % 12.4 %; Neutrophils # 5.6 K/mcL (1.6-8.9); Red Blood Count 2.92 M/mcL (4.19-5.50); Red Cell Distribution Width 17.3 % (11.5-14.5); Segmented Neutrophils % 78.3 %; White Blood Count 7.2 K/mcL (4.3-11.1)
[2020-08-30 15:36] LABS: Platelet Count 69 K/mcL (140-400)
[2020-08-30 16:10] LABS: Calcium 8.8 mg/dL (8.6-10.3); Potassium 4.5 mEq/L (3.5-5.1)
[2020-08-30] MEDS: FentaNYL (PF) 2,500 MCG/50 ML IV.SOLN IVC SCH (21:42)
[2020-08-31] MEDS: Artificial Tears SOLN 15 ML BOTTLE BOTH EYES SCH ×7 (00:20→23:39)
[2020-08-31] MEDS: Insulin LISPRO 300 UNITS/3 ML VIAL SQ SCH ×5 (00:24→23:44)
[2020-08-31] MEDS: Ipratropium/Albuterol Neb 3 ML IH SCH ×4 (03:58→21:27)
[2020-08-31 04:20] LABS: ABG Base Excess -1 mEq/L (-2 to 3); ABG HCO3 28 mEq/L (21-27); ABG Oxygen Saturation 96 % (95-98); ABG PCO2 65 mmHg (35-45); ABG PH 7.24 pH Units (7.32-7.45); ABG PO2 96 mmHg (85-104); ABG TCO2 30 mEq/L (20-26); Blood Gas Modality ASSIST CONTROL; Blood Gas VT 320 cc
[2020-08-31 04:28] LABS: Basophils % 0.5 %; Eosinophils # 0.2 K/mcL (0.0-0.6); Eosinophils % 2.3 %; Hematocrit 30.4 % (37.5-50.1); Hemoglobin 9.1 g/dL (12.9-16.9); Immature Granulocytes % 1.9 % (0-4); Immature Platelets 3.5 % (1.1-6.1); Lymphocytes # 0.6 K/mcL (0.6-4.6); Mean Corpuscular HGB Conc 29.9 g/dL (31.6-35.5); Mean Corpuscular Hemoglobin 30.6 pg (28.0-33.3); Mean Corpuscular Volume 102.4 fL (83.0-100.0); Mean Platelet Volume 9.8 fL (9.4-12.4); Monocytes # 1.4 K/mcL (0.0-1.3); Monocytes % 16.2 %; Neutrophils # 6.1 K/mcL (1.6-8.9); Nucleated Red Blood Cells 0.8 /100 WBC (0); Red Blood Count 2.97 M/mcL (4.19-5.50); Red Cell Distribution Width 18.3 % (11.5-14.5); Segmented Neutrophils % 72.1 %; White Blood Count 8.4 K/mcL (4.3-11.1)
[2020-08-31 04:30] LABS: Platelet Count 73 K/mcL (140-400)
[2020-08-31 04:45] LABS: Calcium 8.7 mg/dL (8.6-10.3); Magnesium 2.8 mg/dL (1.6-2.6); Phosphorous 4.6 mg/dL (2.7-4.5); Potassium 4.9 mEq/L (3.5-5.1)
[2020-08-31] MEDS: FentaNYL (PF) 2,500 MCG/50 ML IV.SOLN IVC SCH ×2 (05:00→21:20)
[2020-08-31] MEDS: Pantoprazole 40 MG VIAL IVP SCH ×2 (06:00→17:41)
[2020-08-31] MEDS: Midazolam HCl 50 MG/100 ML IV.SOLN IVC SCH ×2 (07:47→20:03)
[2020-08-31] MEDS: Albumin 25% 25gram/100mL 25 GM/100 ML IV.SOLN IVPB SCH ×4 (08:22→23:39)
[2020-08-31] MEDS: Chlorhexidine Rinse 15 ML MOUTHWASH MM SCH ×2 (08:22→20:03)
[2020-08-31] MEDS: Aspirin 81 MG TAB.CHEW PO SCH (08:22)
[2020-08-31] MEDS: Lactulose Oral Soln 20 GM/30 ML UDC GTUBE SCH ×4 (08:22→20:09)
[2020-08-31] MEDS: cefTRIAXone 1,000 MG in Water for inj. (sterile) 10 ML IVP SCH (08:23)
[2020-08-31] MEDS: Cyanocobalamin (B-12) 1,000 MCG TABLET PO SCH (08:23)
[2020-08-31 15:26] LABS: ABG Base Excess -1 mEq/L (-2 to 3); ABG HCO3 26 mEq/L (21-27); ABG Oxygen Saturation 97 % (95-98); ABG PCO2 57 mmHg (35-45); ABG PH 7.27 pH Units (7.32-7.45); ABG PO2 109 mmHg (85-104); ABG TCO2 28 mEq/L (20-26); Blood Gas Modality CPAP/PS; Blood Gas Pressure Support 5 cm H2O
[2020-09-01] MEDS: Ipratropium/Albuterol Neb 3 ML IH SCH ×4 (03:29→22:13)
[2020-09-01 03:49] LABS: Basophils % 0.2 %
[2020-09-01 03:51] LABS: Eosinophils # 0.1 K/mcL (0.0-0.6); Eosinophils % 2.4 %; Hematocrit 26.9 % (37.5-50.1); Immature Granulocytes % 1.1 % (0-4); Immature Platelets 3.1 % (1.1-6.1); Lymphocytes # 0.4 K/mcL (0.6-4.6); Lymphocytes % 7.4 %; Mean Corpuscular HGB Conc 29.7 g/dL (31.6-35.5); Mean Corpuscular Hemoglobin 30.2 pg (28.0-33.3); Mean Corpuscular Volume 101.5 fL (83.0-100.0); Mean Platelet Volume 9.6 fL (9.4-12.4); Monocytes # 0.9 K/mcL (0.0-1.3); Neutrophils # 3.9 K/mcL (1.6-8.9); Nucleated Red Blood Cells 0.6 /100 WBC (0); Platelet Count 61 K/mcL (140-400); Red Blood Count 2.65 M/mcL (4.19-5.50); Segmented Neutrophils % 71.9 %; White Blood Count 5.4 K/mcL (4.3-11.1)
[2020-09-01 04:07] LABS: ABG Base Excess 0 mEq/L (-2 to 3); ABG HCO3 26 mEq/L (21-27); ABG Oxygen Saturation 79 % (95-98); ABG PCO2 48 mmHg (35-45); ABG PH 7.34 pH Units (7.32-7.45); ABG PO2 46 mmHg (85-104); ABG TCO2 28 mEq/L (20-26); Blood Gas VT 400 cc
[2020-09-01 04:09] LABS: Calcium 9.3 mg/dL (8.6-10.3); Potassium 4.4 mEq/L (3.5-5.1)
[2020-09-01 04:18] LABS: ABG Base Excess 0 mEq/L (-2 to 3); ABG HCO3 26 mEq/L (21-27); ABG Oxygen Saturation 94 % (95-98); ABG PCO2 47 mmHg (35-45); ABG PH 7.34 pH Units (7.32-7.45); ABG PO2 78 mmHg (85-104); ABG TCO2 27 mEq/L (20-26); Blood Gas VT 400 cc
[2020-09-01] MEDS: Insulin LISPRO 300 UNITS/3 ML VIAL SQ SCH ×4 (05:11→23:30)
[2020-09-01] MEDS: Artificial Tears SOLN 15 ML BOTTLE BOTH EYES SCH ×6 (05:11→23:30)
[2020-09-01] MEDS: Pantoprazole 40 MG VIAL IVP SCH ×2 (05:11→21:13)
[2020-09-01] MEDS: Albumin 25% 25gram/100mL 25 GM/100 ML IV.SOLN IVPB SCH ×3 (08:09→23:30)
[2020-09-01] MEDS: cefTRIAXone 1,000 MG in Water for inj. (sterile) 10 ML IVP SCH (08:09)
[2020-09-01] MEDS: Chlorhexidine Rinse 15 ML MOUTHWASH MM SCH ×2 (08:09→21:13)
[2020-09-01] MEDS: Lactulose Oral Soln 20 GM/30 ML UDC GTUBE SCH ×4 (08:10→21:13)
[2020-09-01] MEDS: Cyanocobalamin (B-12) 1,000 MCG TABLET PO SCH (08:10)
[2020-09-01] MEDS: Aspirin 81 MG TAB.CHEW PO SCH (08:10)
[2020-09-01] MEDS ORDERED: 0.9 % Sodium Chloride 250 ML IVC SCH ×2 (11:15→21:14)
[2020-09-01] MEDS ORDERED: Simethicone 80 MG TAB.CHEW PO PRN (15:23)
[2020-09-01 15:56] LABS: Eosinophils % 0.1 %; Red Cell Distribution Width 18.6 % (11.5-14.5)
[2020-09-01 15:58] LABS: Basophils % 0.1 %; Hematocrit 28.8 % (37.5-50.1); Hemoglobin 8.5 g/dL (12.9-16.9); Immature Granulocytes % 1.2 % (0-4); Immature Platelets 3.3 % (1.1-6.1); Lymphocytes # 0.3 K/mcL (0.6-4.6); Lymphocytes % 3.1 %; Mean Corpuscular HGB Conc 29.5 g/dL (31.6-35.5); Mean Corpuscular Hemoglobin 30.4 pg (28.0-33.3); Mean Corpuscular Volume 102.9 fL (83.0-100.0); Mean Platelet Volume 10.4 fL (9.4-12.4); Monocytes # 1.3 K/mcL (0.0-1.3); Monocytes % 15.7 %; Neutrophils # 6.6 K/mcL (1.6-8.9); Nucleated Red Blood Cells 0.4 /100 WBC (0); Segmented Neutrophils % 79.8 %; White Blood Count 8.3 K/mcL (4.3-11.1)
[2020-09-01 16:08] LABS: Platelet Count 74 K/mcL (140-400)
[2020-09-01] MEDS ORDERED: *HR* Vasopressin 20 UNIT/ML VIAL ONE (17:26)
[2020-09-01] MEDS ORDERED: Albumin Human 5% 0 GM/0 ML IV.SOLN ONE (17:26)
[2020-09-01] MEDS ORDERED: Lidocaine -MPF 2% 2 ML VIAL ONE ×2 (17:30→17:31)
[2020-09-01] MEDS ORDERED: *HR* FentaNYL (PF) 100 MCG/2 ML VIAL ONE (17:30)
[2020-09-01] MEDS ORDERED: *HR* Propofol 200 MG/20 ML VIAL IVP ONE (17:30)
[2020-09-01] MEDS ORDERED: EPHEDrine 50 MG/ML VIAL ONE (17:31)
[2020-09-01] MEDS ORDERED: *HR* Succinylcholine 200 MG/10 ML VIAL IVP ONE (17:31)
[2020-09-01] MEDS ORDERED: *HR* Rocuronium Bromide 50 MG/5 ML VIAL ONE ×2 (17:31→20:05)
[2020-09-01] MEDS ORDERED: *HR* PHENYLEPHRINE 1,000 MCG/10 ML SYRINGE IVP ONE (17:33)
[2020-09-01] MEDS ORDERED: Heparin 1,000 UNITS/500 mL 500 ML ONE (17:45)
[2020-09-01] MEDS ORDERED: *HR* Etomidate 40 MG/20 ML VIAL IVP ONE (18:07)
[2020-09-01] MEDS ORDERED: *HR* Norepinephrine 4 MG/4 ML VIAL IVC ONE (19:44)
[2020-09-01] MEDS ORDERED: Albumin Human 5% 12.5 GM/250 ML IV.SOLN ONE (20:25)
[2020-09-01] MEDS ORDERED: Norepinephrine 4 MG/254 ML IV.SOLN IVC SCH (21:00)
[2020-09-01] MEDS ORDERED: Vasopressin 40 UNIT in D5% in Water 100 ML IVC SCH ×2 (21:00→21:14)
[2020-09-01] MEDS ORDERED: *HR* Dextrose 50 % in Water (Vial) 50 ML VIAL IVP PRN (21:14)
[2020-09-01] MEDS ORDERED: D5% in Water 1,000 ML IVC PRN (21:14)
[2020-09-01] MEDS ORDERED: Naloxone 0.4 MG/ML INJ IVP PRN (21:14)
[2020-09-01] MEDS ORDERED: Ondansetron 4 MG/2 ML VIAL IVP PRN (21:14)
[2020-09-01] MEDS ORDERED: Artificial Tears SOLN 15 ML BOTTLE BOTH EYES PRN (21:14)
[2020-09-01] MEDS ORDERED: Dextrose Gel 15 GM/37.5 ML TUBE PO PRN ×2 (21:14)
[2020-09-01] MEDS: Norepinephrine 4 MG/254 ML IV.SOLN IVC SCH (22:37)
[2020-09-01 22:46] LABS: ABG Base Excess -3 mEq/L (-2 to 3); ABG HCO3 23 mEq/L (21-27); ABG Oxygen Saturation 96 % (95-98); ABG PCO2 49 mmHg (35-45); ABG PH 7.28 pH Units (7.32-7.45); ABG PO2 93 mmHg (85-104); ABG TCO2 25 mEq/L (20-26); Blood Gas VT 400 cc
[2020-09-01 22:53] LABS: Red Cell Distribution Width 15.9 % (11.5-14.5)
[2020-09-01 22:55] LABS: Hemoglobin 7.1 g/dL (12.9-16.9); Immature Platelets 4.6 % (1.1-6.1); Lymphocytes # 0.2 K/mcL (0.6-4.6); Mean Corpuscular HGB Conc 30.9 g/dL (31.6-35.5); Mean Corpuscular Hemoglobin 30.3 pg (28.0-33.3); Mean Corpuscular Volume 98.3 fL (83.0-100.0); Mean Platelet Volume 10.5 fL (9.4-12.4); Nucleated Red Blood Cells 4.9 /100 WBC (0); Red Blood Count 2.34 M/mcL (4.19-5.50); White Blood Count 2.3 K/mcL (4.3-11.1)
[2020-09-01 22:57] LABS: BUN/Creatinine Ratio 47 (6-26); Blood Urea Nitrogen 64 mg/dL (8-23); Calcium 7.4 mg/dL (8.6-10.3); Carbon Dioxide 23 mEq/L (23-29); Chloride 119 mEq/L (98-107); Glucose 186 mg/dL (70-105); Osmolality,Calculated 329 (280-300); Potassium 4.5 mEq/L (3.5-5.1); Sodium 148 mEq/L (136-145); eGFR For African Americans > 60 (> 60); eGFR For Non-African Americans 52 (> 60)
[2020-09-01 23:01] LABS: Platelet Count 51 K/mcL (140-400)
[2020-09-01 23:27] LABS: Large Platelets Present (Not Present); Monocytes # 0.2 K/mcL (0.0-1.3); Platelet Estimate Decreased (Normal)
[2020-09-01 23:39] LABS: VBG Ionized Calcium 1.08 mmol/L (1.15-1.35)
[2020-09-02 00:17] LABS: INR 1.9
[2020-09-02] MEDS ORDERED: FentaNYL (PF) 2,500 MCG/50 ML IV.SOLN IVC SCH (01:45)
[2020-09-02] MEDS: Norepinephrine 4 MG/254 ML IV.SOLN IVC SCH ×2 (02:18→07:00)
[2020-09-02] MEDS: Ipratropium/Albuterol Neb 3 ML IH SCH ×2 (03:46→09:18)
[2020-09-02] MEDS: Artificial Tears SOLN 15 ML BOTTLE BOTH EYES SCH ×3 (03:48→11:50)
[2020-09-02 04:26] LABS: Basophils % 0.2 %
[2020-09-02 04:28] LABS: Hematocrit 30.7 % (37.5-50.1); Hemoglobin 9.4 g/dL (12.9-16.9); Immature Platelets 9.8 % (1.1-6.1); Lymphocytes # 0.2 K/mcL (0.6-4.6); Mean Corpuscular HGB Conc 30.6 g/dL (31.6-35.5); Mean Corpuscular Hemoglobin 29.7 pg (28.0-33.3); Mean Corpuscular Volume 97.2 fL (83.0-100.0); Mean Platelet Volume 11.4 fL (9.4-12.4); Monocytes # 0.9 K/mcL (0.0-1.3); Monocytes % 21.3 %; Nucleated Red Blood Cells 14.4 /100 WBC (0); Red Blood Count 3.16 M/mcL (4.19-5.50); Red Cell Distribution Width 15.9 % (11.5-14.5); Segmented Neutrophils % 73.5 %
[2020-09-02 04:30] LABS: Calcium 7.6 mg/dL (8.6-10.3); Potassium 4.8 mEq/L (3.5-5.1)
[2020-09-02 04:31] LABS: Neutrophils # 2.9 K/mcL (1.6-8.9); Platelet Count 55 K/mcL (140-400)
[2020-09-02 04:34] LABS: ABG Base Excess -4 mEq/L (-2 to 3); ABG HCO3 22 mEq/L (21-27); ABG Oxygen Saturation 96 % (95-98); ABG PCO2 41 mmHg (35-45); ABG PH 7.34 pH Units (7.32-7.45); ABG PO2 86 mmHg (85-104); ABG TCO2 23 mEq/L (20-26); Blood Gas VT 400 cc
[2020-09-02] MEDS: Insulin LISPRO 300 UNITS/3 ML VIAL SQ SCH ×2 (05:00→11:50)
[2020-09-02 05:43] LABS: Anisocytosis 1+ (Not Present); Large Platelets Present (Not Present); Platelet Estimate Decreased (Normal); Poikilocytosis 1+ (Not Present)
[2020-09-02] MEDS ORDERED: 0.9 % Sodium Chloride 250 ML IVC SCH (06:15)
[2020-09-02] MEDS ORDERED: Amiodarone Premix 360 MG/200 ML BAG IVC ONE (07:49)
[2020-09-02] MEDS ORDERED: Phenylephrine 20 MG in 0.9 % Sodium Chloride 250 ML IVC SCH (08:00)
[2020-09-02] MEDS: Albumin 25% 25gram/100mL 25 GM/100 ML IV.SOLN IVPB SCH (08:29)
[2020-09-02] MEDS ORDERED: Cyanocobalamin (B-12) 1,000 MCG TABLET PO SCH (09:00)
[2020-09-02] MEDS ORDERED: Chlorhexidine Rinse 15 ML MOUTHWASH MM SCH (09:00)
[2020-09-02 09:29] LABS: Albumin 2.7 g/dL (3.5-5.7); Albumin/Globulin Ratio 2.7 (1.1-2.2); Bilirubin,Total 3.2 mg/dL (0.3-1.0); Calcium 7.4 mg/dL (8.6-10.3); Magnesium 2.5 mg/dL (1.6-2.6); Phosphorous 4.3 mg/dL (2.7-4.5); Potassium 5.2 mEq/L (3.5-5.1); Total Protein 3.7 g/dL (6.4-8.9)
[2020-09-02] MEDS ORDERED: Calcium Gluconate 1gm/50mL 1 GM/50 ML BAG IVPB SCH (10:00)
[2020-09-02] MEDS ORDERED: Norepinephrine 8 MG in 0.9 % Sodium Chloride 250 ML IVC SCH (10:30)
[2020-09-02] MEDS ORDERED: Phenylephrine 50 MG in 0.9 % Sodium Chloride 250 ML IVC SCH (10:30)
[2020-09-02] MEDS ORDERED: EPINEPHrine 5 MG in D5% in Water 250 ML IVC SCH (10:45)
[2020-09-02] MEDS ORDERED: *HR* Dextrose 50 % in Water (Vial) 50 ML VIAL ONE (11:49)
[2020-09-02 12:12] VITALS: BP 78/12
[2020-09-02] MEDS ORDERED: Amiodarone Premix 360 MG/200 ML BAG IVC SCH (14:00)
== END 2020-09-02 13:02 | disposition expired | DRG 329 ==
LOC: EMEROOARM 22:44 → CDU 22:44 → SUATTDRO 08-26 03:56 → CDU 08-26 06:00 → 2ANU 08-26 18:24 → ICNU 08-26 20:24
PROVIDERS: ADMIT Internal Medicine; ATTEND Internal Medicine